=== PATIENT | male | born 1975 | race Caucasian/White ===

== ENCOUNTER 2021-04-21 16:09 | Emergency (ER) | payer OTHER, SELFPAY ==
[2021-04-21 16:30] VITALS: BP 126/84; PULSE 91; RESP 18; TEMP 36.8; O2SAT 99
--- NOTE | 2021-04-21 17:23 | ED.GENADULT ---
HPI - General Adult General Chief complaint: Upper Respiratory Infection Stated complaint: lost taste and smell and left back pain Source: patient Mode of arrival: ambulatory Limitations: no limitations History of Present Illness HPI narrative: Patient presents for evaluation of loss of sense of taste and smell. He thinks his symptoms started a few days ago, although he cannot identify the exact date of symptom onset. He states symptoms were more noticeable yesterday. No fever, chills, sore throat, nausea, vomiting, diarrhea, cough, shortness of breath, chest pain. No recent sick contacts to his knowledge. He did have COVID back in December 2020. He did not receive COVID vaccinations. No additional complaints or concerns. Related Data Home Medications Medication Instructions Recorded Confirmed meloxicam 15 mg PO DAILY 04/21/21 04/21/21 omeprazole 40 mg PO DAILY 04/21/21 04/21/21 vortioxetine [Trintellix] 20 mg PO DAILY 04/21/21 04/21/21 Allergies Allergy/AdvReac Type Severity Reaction Status Date / Time No Known Allergies Allergy Verified 04/21/21 16:52 Review of Systems Review of Systems: CONSTITUTIONAL: Denies fever, chills, or sweats. EYES: Denies visual changes, redness, or discharge. ENT: Reports impaired sense of taste and smell CARDIOVASCULAR: Denies chest pain, palpitations, or edema. RESPIRATORY: Denies cough or dyspnea. GASTROINTESTINAL: Denies abdominal pain, nausea, vomiting, or diarrhea. GENITOURINARY: Denies dysuria or hematuria. SKIN: Denies rash or itching. MUSCULOSKELETAL: Denies back pain, joint pain, or myalgia. NEUROLOGIC: Denies headache, numbness, dizziness, or weakness. PSYCHIATRIC: Denies anxiety or depression. [facility] Past Medical History Medical History (Updated 04/21/21 @ 17:30 by ALBERTO Chavez, MARVIN) Anxiety Depression GERD (gastroesophageal reflux disease) Surgical History Surgical History No pertinent past surgical history Family History Family History Mother No pertinent past medical history Social History Social History Substance use: never Living arrangements: with family Gender identity (if verbalized by the patient): Male Sexual Orientation (if Verbalized by the Patient): Straight or Heterosexual Spiritual care concerns: No Exam Narrative: GENERAL: Well-appearing, well-nourished, and in no acute distress. HEAD: Normocephalic, atraumatic. EYES: PERRLA and EOMI. ENT: Nares clear, no rhinorrhea or epistaxis. Mucous membranes moist. Oropharynx without tonsillar hypertrophy exudate or other lesions. Bilateral TMs pearly knowles nonbulging NECK: Supple. No adenopathy or masses. No carotid bruits or JVD CHEST: Clear to auscultation. No respiratory distress. No wheezes rales or rhonchi HEART: Regular rate and rhythm. No murmur heard. Normal peripheral pulses. ABDOMEN: Soft, nontender, nondistended, normal active bowel sounds. EXTREMITIES: Normal range of motion. No edema. SKIN: Warm, dry, no rash. NEURO: No focal deficits. Alert and oriented x3. PSYCH: Normal mood and affect. Course Course Emergency Course: This is a 45-year-old male that presents with loss of sense of taste and smell. COVID was negative. He has no other symptoms warranting additional work-up. We will send [facility] for PCR testing. Advised that he repeat testing in a few days. He should follow-up outpatient for further evaluation and treatment return for worsening symptoms. Patient agreed with plan of care. Level of Care: Express Care Visit Vital Signs Vital signs: Vital Signs Temperature 36.8 C 04/21/21 16:30 Pulse Rate 91 04/21/21 16:30 Respiratory Rate 18 04/21/21 16:30 Blood Pressure 126/84 04/21/21 16:30 Pulse Oximetry 99 04/21/21 16:30 Temperature 36.8 C 04/21/21 16:3
== END 2021-04-21 17:35 | disposition home or self-care (01) ==
PROVIDERS: Emergency Provider Nurse Practitioner; PCP Internal Medicine
DX: Z20.822 Contact with and (suspected) exposure to COVID-19 (principal); R43.8 Other disturbances of smell and taste; K21.9 Gastro-esophageal reflux disease without esophagitis; Z86.16 Personal history of COVID-19; F32.A Depression, unspecified
CPT/HCPCS: 87426; 99213; C9803; G0463

== ENCOUNTER 2021-08-23 14:20 | Emergency (ER) | payer OTHER, SELFPAY ==
[2021-08-23 14:35] VITALS: BP 115/71; PULSE 70; RESP 20; TEMP 36.8; O2SAT 97
--- NOTE | 2021-08-23 15:37 | ED.URI ---
HPI - URI/Sore Throat General Chief Complaint: Upper Respiratory Infection Stated Complaint: Sore Throat Time Seen by Provider: 08/23/21 15:35 Source: patient, RN notes reviewed and old records reviewed Mode of arrival: ambulatory Limitations: no limitations History of Present Illness HPI Narrative: 45 year old male who presents to [facility] care with complaints of sore throat and left ear pain for the past 3 days.Patient reports that he has not been exposed to anyone at who is ill, denies any fevers, chills or sweats. Patient states that throat is very sore especially with swallowing and his left eat has increased pain also with swallowing, has also noted some dry cough.Patient has not taken any Zyrtec or Claritin, has been taking some Ibuprofen. MD elicited complaint: sore throat and other (Ear pain) Related Data Home Medications Medication Instructions Recorded Confirmed omeprazole 40 mg PO DAILY 04/21/21 08/23/21 vortioxetine [Trintellix] 20 mg PO DAILY 04/21/21 08/23/21 Allergies Allergy/AdvReac Type Severity Reaction Status Date / Time No Known Allergies Allergy Verified 08/23/21 14:38 Review of Systems Review of Systems: CONSTITUTIONAL: Denies fever, chills, or sweats. EYES: Denies visual changes, redness, or discharge. ENT: Denies rhinorrhea, congestion,positive for sore throat,left otalgia. CARDIOVASCULAR: Denies chest pain, palpitations, or edema. RESPIRATORY:Positive for dry cough denies dyspnea. GASTROINTESTINAL: Denies abdominal pain, nausea, vomiting, or diarrhea. GENITOURINARY: Denies dysuria or hematuria. SKIN: Denies rash or itching. MUSCULOSKELETAL: Denies any acute back pain, joint pain, or myalgia. NEUROLOGIC: Denies headache, numbness, or weakness. PSYCHIATRIC: Positive for history of anxiety or depression. All systems reviewed & are unremarkable except as noted in HPI and below PMFSH Past Medical History Medical History Anxiety Depression GERD (gastroesophageal reflux disease) Surgical History Surgical History No pertinent past surgical history Family History Family History Mother No pertinent past medical history Social History Social History Substance use: never Gender identity (if verbalized by the patient): Male Sexual Orientation (if Verbalized by the Patient): Straight or Heterosexual Spiritual care concerns: No Comments At time of signature, agree with nursing past medical, surgical, social and family history. There is no relevant family history pertinent to the presenting complaint Exam Narrative: GENERAL: Well-appearing, well-nourished, and in no acute distress. HEAD: Normocephalic, atraumatic. EYES: PERRLA and EOMI. ENT: Nares slight redness with some clear rhinorrhea no epistaxis. Mucous membranes moist.TM's normal with some dull light reflex, throat red with no lesions or exudates, tonsils red and swollen NECK: Supple.no lymphadenopathy CHEST: Clear to auscultation. No respiratory distress.dry cough noted, SAO2 97% on room air HEART: Regular rate and rhythm. No murmur heard. Normal peripheral pulses. ABDOMEN: Soft, nontender, nondistended, normal active bowel sounds. EXTREMITIES: Normal range of motion. No edema. SKIN: Warm, dry, no rash. NEURO: No focal deficits. Alert and oriented x3. Course Course Level of Care: Express Care Visit Vital Signs Vital signs: Vital Signs Temperature 36.8 C 08/23/21 14:35 Pulse Rate 70 08/23/21 14:35 Respiratory Rate 20 08/23/21 14:35 Blood Pressure 115/71 08/23/21 14:35 Pulse Oximetry 97 08/23/21 14:35 Temperature 36.8 C 08/23/21 14:35 Pulse Rate 70 08/23/21 14:35 Respiratory Rate 20 08/23/21 14:35 Blood Pressure 115/71 08/23/21 14:35 Pulse Oximetry 97 08/23/21 14:35
== END 2021-08-23 16:07 | disposition home or self-care (01) ==
PROVIDERS: Emergency Provider Registered Nurse; PCP Internal Medicine
DX: J03.90 Acute tonsillitis, unspecified (principal); H92.02 Otalgia, left ear; K21.9 Gastro-esophageal reflux disease without esophagitis
CPT/HCPCS: 87081; 87880; 99213; G0463

== ENCOUNTER 2022-01-30 08:58 | Emergency (ER) | payer OTHER, SELFPAY ==
[2022-01-30 09:02] VITALS: BP 162/99; PULSE 78; RESP 16; TEMP 37.6; O2SAT 99
--- NOTE | 2022-01-30 09:07 | ED.URI ---
HPI - URI/Sore Throat General Chief Complaint: Upper Respiratory Infection Stated Complaint: cough sore throat headache fever Time Seen by Provider: 01/30/22 09:08 Source: patient, RN notes reviewed and old records reviewed Mode of arrival: ambulatory Limitations: no limitations History of Present Illness HPI Narrative: 46 year old male presents to [facility] care with complaints of sore throat, fevers up to 103F, body aches for the past 3 days with cough and headaches, and nasal drainage. Patient reports that he could hardly swallow this morning his throat hurt so bad. Patient reports that she has been taking NyQuil. Mucinex and Tylenol for her symptoms. Patient has not been COVID vaccinated and he has had COVID in past. Patient reports that cough is frequent and he feels like he is wheezing at times. MD elicited complaint: fever, cough, sore throat and rhinorrhea Onset (ago): day(s) (3) Pain scale (0-10): 2 Able to tolerate fluids by mouth: Yes Treatments prior to arrival: acetaminophen and other (Mucinex and NyQuil) Related Data Home Medications Medication Instructions Recorded Confirmed omeprazole 40 mg capsule,delayed 40 mg PO DAILY 04/21/21 01/30/22 release vortioxetine 20 mg tablet 20 mg PO DAILY 04/21/21 01/30/22 (Trintellix) meloxicam 15 mg tablet 30 mg PO DAILY 01/30/22 01/30/22 Allergies Allergy/AdvReac Type Severity Reaction Status Date / Time No Known Allergies Allergy Verified 01/30/22 09:27 Review of Systems Review of Systems: CONSTITUTIONAL: Reports malaise, chills, sweats, or fever. EYES: Denies visual changes, redness, or discharge. ENT: Reports rhinorrhea, congestion, no sinus pain, no otalgia, positive for sore throat. CARDIOVASCULAR: Denies chest pain, palpitations, or edema. RESPIRATORY: Reports cough.? Denies dyspnea. GASTROINTESTINAL: Denies abdominal pain, nausea, vomiting, diarrhea SKIN: Denies rash or itching. MUSCULOSKELETAL:Reports myalgia. NEUROLOGIC: Reports headache. All systems reviewed & are unremarkable except as noted in HPI and below PMFSH Past Medical History Medical History Anxiety Depression GERD (gastroesophageal reflux disease) Surgical History Surgical History No pertinent past surgical history Family History Family History Mother No pertinent past medical history Social History Social History Substance use: never Gender identity (if verbalized by the patient): Male Sexual Orientation (if Verbalized by the Patient): Straight or Heterosexual Spiritual care concerns: No Comments At time of signature, agree with nursing past medical, surgical, social and family history. There is no relevant family history pertinent to the presenting complaint Exam Narrative: GENERAL: Well-appearing, well-nourished, and in no acute distress. HEAD: Normocephalic EYES: PERRLA, conjunctivae clear ENT: Nares clear, turbinates edematous and erythematous, clear discharge. Mucous membranes moist. TM pearly knowles with dull light reflex bilaterally; no tragal tenderness. Oropharynx erythematous without lesions. Tonsils enlarged and with exudate, no drooling, no hoarseness, no trismus, uvula midline. NECK: Supple. lymphadenopathy CHEST: Scattered wheezing on auscultation, breath sounds equal. wheezing,no rhonchi, rales, or stridor. No respiratory distress, speaks in full sentences.Cough, SAO2 99% on room air HEART: Regular rate and rhythm. No murmur heard. SKIN: Warm, dry, no rash. NEURO: Alert and oriented x3. PSYCH: Normal mood and affect Course Course Emergency Course: Patient is aware of diagnosis, understands and agrees to treatment plan.? Anticipatory guidance given.? Patient agrees to follow-up as directed and is aware
== END 2022-01-30 09:56 | disposition home or self-care (01) ==
PROVIDERS: Emergency Provider Registered Nurse; PCP Internal Medicine
DX: J02.0 Streptococcal pharyngitis (principal); J40 Bronchitis, not specified as acute or chronic
CPT/HCPCS: 87880; 99213; G0463

== ENCOUNTER 2022-05-25 08:40 | Emergency (ER) | payer OTHER, SELFPAY ==
--- NOTE | 2022-05-25 08:45 | ED.URI ---
HPI - URI/Sore Throat General Chief Complaint: Upper Respiratory Infection Stated Complaint: Sore Throat Source: patient and RN notes reviewed History of Present Illness HPI Narrative: 46-year-old male presents to urgent care with complaints of sore throat that radiates to both ears. Patient states he is also presenting with a cough that has almost caused him to vomit. Patient states he had a fever yesterday and states this is when his symptoms started. Patient states his son tested positive for strep throat 2 weeks ago. Denies any chest pain, shortness of breath, fever vomiting. Patient has been taking cough drops with good relief. Some parts of this dictation were generated by voice recognition software and may contain typographical and/or grammatical inaccuracies. Related Data Home Medications Medication Instructions Recorded Confirmed omeprazole 40 mg capsule,delayed 40 mg PO DAILY 04/21/21 05/25/22 release vortioxetine 20 mg tablet 20 mg PO DAILY 04/21/21 05/25/22 (Trintellix) meloxicam 15 mg tablet 30 mg PO DAILY 01/30/22 05/25/22 Allergies Allergy/AdvReac Type Severity Reaction Status Date / Time No Known Allergies Allergy Verified 05/25/22 08:43 Review of Systems Review of Systems: CONSTITUTIONAL: Denies fever, chills, or sweats. EYES: Denies visual changes, redness, or discharge. ENT: Reports sore throat that radiates to both ears. CARDIOVASCULAR: Denies chest pain, palpitations, or edema. RESPIRATORY: Denies cough or dyspnea. GASTROINTESTINAL: Denies abdominal pain, nausea, vomiting, or diarrhea. GENITOURINARY: Denies dysuria or hematuria. SKIN: Denies rash or itching. MUSCULOSKELETAL: Denies back pain, joint pain, or myalgia. NEUROLOGIC: Denies headache, numbness, or weakness. [facility] Past Medical History Medical History Anxiety Depression GERD (gastroesophageal reflux disease) Surgical History Surgical History No pertinent past surgical history Family History Family History Mother No pertinent past medical history Social History Social History Substance use: never Living arrangements: with family Gender identity (if verbalized by the patient): Male Sexual Orientation (if Verbalized by the Patient): Straight or Heterosexual Spiritual care concerns: No Comments At the time of my signature, I reviewed and agree with the nursing past medical, surgical, social, and family history. There is no relevant family history pertinent to the patient complaint. Exam Narrative: GENERAL: This is a well-nourished, well-developed patient, in no apparent distress. HEAD: normocephalic, atraumatic. EYES: PERRL. Sclera clear/white. Vision is grossly intact. EARS: External ears normal, auditory canals clear and without drainage, TMs normal without perforation. Hearing grossly intact. NOSE: External nose normal with no obvious nasal discharge, nares without redness, no rhinorrhea. THROAT: Mucous membranes moist, posterior pharynx erythremic, uvula slightly swollen, no exudate noted. NECK: Neck supple, non-tender without lymphadenopathy, masses or thyromegaly. CARDIOVASCULAR: Regular rate and rhythm without murmurs, gallops, or rubs. RESPIRATORY: Clear to auscultation. Breath sounds equal bilaterally. No wheezes, rales, or rhonchi. GASTROINTESTINAL: Abdomen soft, non-tender, nondistended. Bowel sounds are active. No hepato-splenomegaly, or palpable masses. No guarding. SKIN: warm, intact with no suspicious lesions or rash, good texture and turgor. NEURO: awake, alert, and oriented to person, place and time. There were no obvious focal neurologic abnormalities. Course Course Level of Care: Express Care Visit Vital Signs Vital signs: Vital Signs Temperature 98.3 F 02/2
[2022-05-25 08:46] VITALS: BP 130/82; PULSE 61; RESP 20; TEMP 36.8; O2SAT 98
== END 2022-05-25 09:25 | disposition home or self-care (01) ==
PROVIDERS: Emergency Provider Nurse Practitioner Family; PCP Internal Medicine
DX: J02.9 Acute pharyngitis, unspecified (principal); Z79.1 Long term (current) use of non-steroidal anti-inflammatories (NSAID)
CPT/HCPCS: 87081; 87880; 99213; G0463

== ENCOUNTER 2022-05-26 16:08 | Emergency (ER) | payer OTHER, SELFPAY ==
[2022-05-26 16:12] VITALS: BP 130/82; PULSE 66; RESP 20; TEMP 36.4; O2SAT 99
--- NOTE | 2022-05-26 17:04 | ED.EYEPROB ---
HPI - Eye Problem General Chief complaint: Eye Problems Stated complaint: Eye Problem Time Seen by Provider: 05/26/22 16:50 Source: patient, RN notes reviewed and old records reviewed Mode of arrival: ambulatory Limitations: no limitations History of Present Illness HPI Narrative: 46 year old male presents to [facility] care with complaints of left eye crusting, redness and itching which started this morning.Patient was seen in the clinic 2 days ago for respiratory complaints and sore throat with negative strep at that time. Patient denies any sore throat at this time, does continue to have some sinus congestion and drainage and mild cough but reports symptoms have improved. MD chief complaint: eye redness and other (crusting and itching) Onset (ago): hour(s) (this morning) Location: left eye Related Data Home Medications Medication Instructions Recorded Confirmed omeprazole 40 mg capsule,delayed 40 mg PO DAILY 04/21/21 05/25/22 release vortioxetine 20 mg tablet 20 mg PO DAILY 04/21/21 05/25/22 (Trintellix) meloxicam 15 mg tablet 30 mg PO DAILY 01/30/22 05/25/22 Allergies Allergy/AdvReac Type Severity Reaction Status Date / Time No Known Allergies Allergy Verified 05/25/22 08:43 Review of Systems Review of Systems: CONSTITUTIONAL: Denies fever, chills, or sweats. EYES: Denies visual changes. Reports redness,, irritation, discharge to his left eye ENT: Reports some rhinorrhea, congestion,no sore throat, or otalgia. CARDIOVASCULAR: Denies chest pain, palpitations, or edema. RESPIRATORY: Reports mild cough denies dyspnea. SKIN: Denies rash or itching. NEUROLOGIC: Denies headache All systems reviewed & are unremarkable except as noted in HPI and below PMFSH Past Medical History Medical History (Updated 05/28/22 @ 06:44 by Veronica Moreno NP) Anxiety Asthma as child Depression GERD (gastroesophageal reflux disease) Surgical History Surgical History (Updated 05/28/22 @ 06:40 by Veronica Moreno NP) Hx of spinal surgery Family History Family History Mother No pertinent past medical history Social History Social History Substance use: never Living arrangements: with family Gender identity (if verbalized by the patient): Male Sexual Orientation (if Verbalized by the Patient): Straight or Heterosexual Spiritual care concerns: No Comments At time of signature, agree with nursing past medical, surgical, social and family history. There is no relevant family history pertinent to the presenting complaint Exam Narrative: GENERAL: Well-appearing, well-nourished, and in no acute distress. HEAD: Normocephalic, atraumatic. EYES: PERRLA and EOMI. Upper and lower eyelids unremarkable. No periorbital cellulitis noted. Sclera and conjunctivae injected of left eye with itching ENT: Nares clear, clear rhinorrhea no epistaxis. Mucous membranes moist.TM's normal with good light reflex, throat pink with no lesions or swelling NECK: Supple.no lymphadenopathy CHEST: Clear to auscultation. No respiratory distress. HEART: Regular rate and rhythm. No murmur heard. Normal peripheral pulses. SKIN: Warm, dry, no rash. NEURO: No focal deficits. Alert and oriented x3. Course Course Emergency Course: Patient is aware of diagnosis, understands and agrees to treatment plan. Anticipatory guidance given. Patient agrees to follow-up as directed and is aware of reasons to seek care at the emergency department. Portions of this record may have been created with voice recognition software Level of Care: Express Care Visit Vital Signs Vital signs: Vital Signs Temperature 36.4 C L 05/26/22 16:12 Pulse Rate 66 05/26/22 16:12 Respiratory Rate 20 05/26/22 16:12 Blood Pressure 130/82 05/26/22 16:12 Pulse Oximetry 99 05/26/22 16:12 Oxygen Delivery Room Air 05/26/22 16:12 Temperature
== END 2022-05-26 17:16 | disposition home or self-care (01) ==
PROVIDERS: Emergency Provider Registered Nurse; PCP Internal Medicine
DX: H10.9 Unspecified conjunctivitis (principal); K21.9 Gastro-esophageal reflux disease without esophagitis
CPT/HCPCS: 99213; G0463

== ENCOUNTER 2023-07-25 16:27 | Emergency (ER) | payer OTHER, SELFPAY ==
[2023-07-25 16:32] VITALS: BP 148/87; PULSE 67; RESP 20; TEMP 36.6; O2SAT 100
--- NOTE | 2023-07-25 17:03 | ED.GENADULT ---
HPI - General Adult General Chief complaint: Eye Problems Stated complaint: Right Eye Problem Source: patient Mode of arrival: ambulatory Limitations: no limitations History of Present Illness HPI narrative: Patient presents for evaluation of swelling and redness to the right lower eyelid. Symptom onset 2200 last night. Reports some tearing. Denies visual disturbance. He does not were glasses or contacts. He has not tried any therapies to assist with the symptoms. Related Data Home Medications Medication Instructions Recorded Confirmed omeprazole 40 mg capsule,delayed 40 mg PO DAILY 04/21/21 07/25/23 release vortioxetine 20 mg tablet 20 mg PO DAILY 04/21/21 07/25/23 (Trintellix) clonazepam 0.5 mg tablet 0.5 mg PO DAILY PRN Anxiety 07/25/23 07/25/23 trazodone 100 mg tablet See Rx Instructions .Route .COMPLEX 07/25/23 07/25/23 Allergies Allergy/AdvReac Type Severity Reaction Status Date / Time No Known Allergies Allergy Verified 07/25/23 16:56 Review of Systems Review of Systems: CONSTITUTIONAL: Denies fever, chills, or sweats. EYES: Denies visual changes or redness to the eye. Reports tearing from the right eye ENT: Denies rhinorrhea, congestion, sore throat, or otalgia. CARDIOVASCULAR: Denies chest pain, palpitations, or edema. RESPIRATORY: Denies cough or dyspnea. GASTROINTESTINAL: Denies abdominal pain, nausea, vomiting, or diarrhea. GENITOURINARY: Denies dysuria or hematuria. SKIN: Reports swelling and redness to the right lower eyelid. MUSCULOSKELETAL: Denies back pain, joint pain, or myalgia. NEUROLOGIC: Denies headache, numbness, dizziness, or weakness. PSYCHIATRIC: Denies anxiety or depression. [facility] Past Medical History Medical History Anxiety Asthma as child Depression GERD (gastroesophageal reflux disease) Surgical History Surgical History Hx of spinal surgery Family History Family History Mother No pertinent past medical history Social History Social History Substance use: never Living arrangements: with family Gender identity (if verbalized by the patient): Male Sexual Orientation (if Verbalized by the Patient): Straight or Heterosexual Spiritual care concerns: No Exam Narrative: GENERAL: Well-appearing, well-nourished, and in no acute distress. HEAD: Normocephalic, atraumatic. EYES: PERRLA and EOMI. ENT: Nares clear, no rhinorrhea or epistaxis. Mucous membranes moist. Oropharynx without tonsillar hypertrophy exudate or other lesions. Bilateral TMs pearly knowles nonbulging NECK: Supple. No adenopathy or masses. No carotid bruits or JVD CHEST: Clear to auscultation. No respiratory distress. No wheezes rales or rhonchi HEART: Regular rate and rhythm. No murmur heard. Normal peripheral pulses. ABDOMEN: Soft, nontender, nondistended, normal active bowel sounds. EXTREMITIES: Normal range of motion. No edema. SKIN: There is erythema and mild swelling noted surrounding a hair follicle to the right lower eyelid. Warm, dry, no rash. NEURO: No focal deficits. Alert and oriented x3. PSYCH: Normal mood and affect. Course Course Emergency Course: This is a 47-year-old male who presented for evaluation of swelling and redness to the right lower eyelid. He has evidence of a hordeolum. Recommended application of warm compresses. Will also discharge with a prescription for erythromycin ointment. Follow up with primary provider. Go to the emergency department for worsening symptoms. Patient in agreement with plan care Level of Care: Express Care Visit Vital Signs Vital signs: Vital Signs Temperature 36.6 C 07/25/23 16:32 Pulse Rate 67 07/25/23 16:32 Respiratory Rate 20 07/25/23 16:32 Blood Pressure 148/87 H 07/25/23 16:32 Pulse Oximetry 100 07/25/23 16:32 Oxygen Delivery Room Air 07/25/23 16:32 Temperature 36.6 C 07/25/23 16:32 Pulse Rate 67 07/25/23 16:32 Respiratory Rate 20 07/25/23 16:32 Blood Pressure 148/87 H 07/25/23 16:32 Pulse Oximetry 100 07/25/23 16:32 Oxygen Delivery Room Air 07/25/23 16:32 Medical Decision Making Vital Signs Vital Signs: Vital Signs Temperature 36.6 C 07/25/23 16:32 Pulse Rate 67 07/25/23 16:32 Respiratory Rate 20 07/25/23 16:32 Blood Pressure 148/87 H 07/25/23 16:32 Pulse Oximetry 100 07/25/23 16:32 Oxygen Delivery Room Air 07/25/23 16:32 Temperature 36.6 C 07/25/23 16:32 Pulse Rate 67 07/25/23 16:32 Respiratory Rate 20 07/25/23 16:32 Blood Pressure 148/87 H 07/25/23 16:32 Pulse Oximetry 100 07/25/23 16:32 Oxygen Delivery Room Air 07/25/23 16:32 Discharge Plan Discharge Clinical Impression: Hordeolum Patient Disposition: Home, Self-Care Condition: Stable Instructions: Antibiotic Abiel Kovacs (ED) Patient Language: Serbian Prescriptions: New erythromycin 5 mg/gram (0.5 %) ointment 1 applic RIGHT EYE 6XD Qty: 3.5 0RF No Action clonazepam 0.5 mg tablet 0.5 mg PO DAILY PRN (Reason: Anxiety) trazodone 100 mg tablet See Rx Instructions .ROUTE .COMPLEX Rx Instructions: as prescribed omeprazole 40 mg capsule,delayed release(DR/EC) 40 mg PO DAILY Trintellix 20 mg tablet 20 mg PO DAILY Follow-up/Referrals: Janelle,Eldon Cartwright MD [Primary Care Provider] - Time of Disposition: 16:48
== END 2023-07-25 16:50 | disposition home or self-care (01) ==
PROVIDERS: Emergency Provider Nurse Practitioner; PCP Internal Medicine
DX: H00.012 Hordeolum externum right lower eyelid (principal); K21.9 Gastro-esophageal reflux disease without esophagitis; F41.9 Anxiety disorder, unspecified; F32.A Depression, unspecified
CPT/HCPCS: 99213; G0463

== ENCOUNTER 2024-05-05 08:02 | Emergency (ER) | payer OTHER, SELFPAY ==
[2024-05-05 08:09] VITALS: BP 124/78; PULSE 69; RESP 16; TEMP 37; O2SAT 98
--- OUTSIDE RECORDS SUMMARY | 2024-05-05 08:11 | XMS_ITS | Referral Summary ---
Author Organization [address] lt Address [address] [place] [address] Care Team Providers Care Sanitation Worker Name Role Phone Eldon Luis MD Primary Care Provider + Allergies No known active allergies Medications albuterol HFA (PROVENTIL HFA,VENTOLIN HFA,PROAIR HFA) 90 mcg/actuation inhaler Inhale 2 puffs every 4 (four) hours as needed 05/11/2019 Active clonazePAM (KlonoPIN) 0.5 mg tablet 10/11/2020 Active meloxicam (MOBIC) 15 mg tablet 10/05/2020 Active omeprazole (PriLOSEC) 40 mg capsule 10/05/2020 Active tiZANidine (ZANAFLEX) 2 mg tablet 07/31/2020 Active Trintellix 20 mg tablet 10/05/2020 Active Active Problems Problem Noted Date Diagnosed Date Lumbago 09/14/2011 Herniated lumbar intervertebral disc 12/22/2010 Immunizations Name Administration Dates Next Due Influenza, Quadrivalent, Spl it, Preservative Free, Intramuscular 01/18/2020,01/27/2018 Influenza, Trivalent, IM (MDV) 02/13/2009 Pneumococcal Polysaccharide PPV23 01/18/2020 Tdap 09/20/2015,02/13/2009 Social History Tobacco Use Types Packs/Day Years Used Date Smoking Tobacco: Never Smokeless Tobacco: Never Alcohol Use Standard Drinks/Week Comments Yes 0 (1 standard drink = 0.6 oz pur e alcohol) Sex and Gender Information Value Date Recorded Sex Assigned at Not on file 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 Gender Identity Not on file Sexual Orientation Not on file Last Filed Vital Signs Vital Sign Reading Time Taken Comments Blood Pressure 125/90 12/11/2020 9:59 AM CDT Pulse 66 12/11/2020 8:54 AM CDT Temperature 36.6 ??C (97.8 ??F) 12/11/2020 8:54 AM CD T Respiratory Rate 15 12/11/2020 8:54 AM CDT Oxygen Saturation 98% 12/11/2020 8:54 AM CDT Inhaled Oxygen Concentration - - Weight 108 kg (238 lb) 12/11/2020 8:54 AM CDT Height 167.6 cm (5' 6 ) 12/11/2020 8:54 AM CDT Body Mass Index 38.41 12/11/2020 8:54 AM CDT Plan of Treatment Not on file Insurance [employer] Care Teams Sanitation Worker Relationship Specialty Start Date End Date Eldon Luis MD [address] [place] [phone] PCP - General 12/22/18
--- OUTSIDE RECORDS SUMMARY | 2024-05-05 08:11 | XMS_ITS | Clinical Summary ---
Author Organization [facility] Address [address] [place] [address] Phone Care Team Providers Care Database Analyst Name Role Phone Eldon Luis MD Primary Care Provider [phone] Allergies No known active allergies Medications cyclobenzaprine (FLEXERIL) 10 MG Tablet Take 1 Tablet by mouth 3 times daily as needed for Muscle spasms. 30 Tablet 07/02/2022 Active Social History Tobacco Use Types Packs/Day Years Used Date Smoking Tobacco: Never Smokeless Tobacco: Never Alcohol Use Standard Drinks/Week Comments Never 0 (1 standard drink = 0.6 oz pur e alcohol) Sex and Gender Information Value Date Recorded Sex Assigned at Not on file Legal Sex Male 12:40 PM CDT Gender Identity Not on file Sexual Orientation Not on file Last Filed Vital Signs Vital Sign Reading Time Taken Comments Blood Pressure 143/76 07/02/2022 11:00 PM CDT Pulse 65 07/02/2022 11:00 PM CDT Temperature 37.1 ??C (98.7 ??F) 07/02/2022 10:28 PM C DT Respiratory Rate 18 07/02/2022 10:31 PM CDT Oxygen Saturation 98% 07/02/2022 11:00 PM CDT Inhaled Oxygen Concentration - - Weight 106.6 kg (235 lb) 07/02/2022 10:28 PM CDT Height 167.6 cm (5' 6 ) 07/02/2022 10:28 PM CDT Body Mass Index 37.93 07/02/2022 10:28 PM CDT Plan of Treatment Not on file Insurance Care Teams Database Analyst Relationship Specialty Start Date End Date Eldon Luis MD [address] [place] [phone] PCP - General 08/26/21
--- OUTSIDE RECORDS SUMMARY | 2024-05-05 08:11 | XMS_ITS | Clinical Summary ---
Author Organization [facility] Address [address] [place] [address]. 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 Gender Identity Not on file Sexual Orientation Not on file Last Filed Vital Signs Vital Sign Reading Time Taken Comments Blood Pressure 132/80 07/03/2022 4:30 PM CDT Pulse 73 07/03/2022 4:30 PM CDT Temperature 36.4 ??C (97.5 ??F) 07/03/2022 4:32 PM CD T Respiratory Rate 18 07/03/2022 4:30 PM CDT Oxygen Saturation 96% 07/03/2022 4:30 PM CDT Inhaled Oxygen Concentration - - Weight 106.6 kg (235 lb) 07/03/2022 4:30 PM CDT Height 167.6 cm (5' 6 ) 07/03/2022 4:30 PM CDT Body Mass Index 37.93 07/03/2022 4:30 PM CDT Plan of Treatment Health Maintenance Due Date Last Done Comments Colorectal Cancer Screening Colonoscopy (10 Years) 1977 Annual Physical 1980 Hepatitis C 11/23/1995 Hepatitis B Vaccines (1 of 3 - 19+ 3-dose series) 1996 COVID-19 Vaccine (2023-2 5 season) 2023 Influenza Adult (#1) 2024 01/18/2020, 01/27/2018, 02/13/2009 DTaP, Tdap and Td Vaccines ( 3 - Td or Tdap) 09/19/2025 09/20/2015, 02/13/2009 Pneumococcal Vaccine: Pediatrics (0 to 5 Years) and At-Risk Patients (6 to 64 Years) Aged Out 01/18/2020 No longer eligible b ased on patient's age to complete this topic Meningococcal B Vaccine Aged Out No l onger eligible based on patient's age to complete this topic Meningococcal Vaccine Aged Out No ricki elkin eligible based on patient's age to complete this topic RSV Immunizations Under 20 Months Aged Out No longer eligible b ased on patient's age to complete this topic Insurance [employer] Member Subscriber Plan / Payer (Ef fective 2022-Present) Name:anupam duarte Relation to Subscriber:Self Name:Anupam Duarte Payer ID:Not on file Group ID:Not on file Type:Not on file Address: [address] [id number] Care Teams Electrician Shop Relationship Specialty Start Date End Date None, Provider, PCP - General 04/04/21
--- OUTSIDE RECORDS SUMMARY | 2024-05-05 08:11 | XMS_ITS | Encounter Summary ---
Author Organization [facility] Address [address] [place] [address] Care Team Providers Care Film Replacement Orderer Name Role Phone Eldno Luis MD Primary Care Provider [phone] Encounter Details Date Type Department Care Team (Late st Contact Info) Description 11/11/2014 Nurse Triage Report [facility]STRACTION Marcella Kathleen, RN Social History Tobacco Use Types Packs/Day Years Used Date Smoking Tobacco: Never Smokeless Tobacco: Never Alcohol Use Standard Drinks/Week Comments Yes 0.8 (1 standard drink = 0.6 oz p ure alcohol) rarely Sex and Gender Information Value Date Recorded Sex Assigned at Not on file Legal Sex Male 3:12 AM REMOTE CODERS Gender Identity Not on file Sexual Orientation Not on file documented as of this encounter Progress Notes * Marcella Kathleen, RN - 11/11/2014 7:13 AM CDT CHART DOCUMENTATION ONLY Call Type: Triage Call Presenting Problem: Nilda Duarte, He is having left sided cheek and facial pain. report feedback to Dr. uLis Associated Symptoms: pain in left check, radiates into his ear, over to left eye and his check. Unable to sleep and is pacing due to pain Onset: 4 days ago Location: facial Pain Assessment: 1 - 10 with 10 being the most severe pain 8 Treatment so far for current presenting problem: taking meds as directed History (Clinical Problems): dx with [place] History (Oncology/Hematology Diagnosis): Depression Medications: all meds verified in [facility] with callers list Medication reactions: NKDA <<<<<<<< TRIAGE NOTE >>>>>>>> <<<<<<<< TRIAGE/OUTCOME >>>>>>>> Guideline Title: Face Pain or Swelling Recommended Disposition: See Provider within 4 hours Original Inclination: Call Provider/See in 24 Intended Action: See care in [facility] Physician Contacted: No Localized tenderness over one or both temples ? YES documented in this encounter Plan of Treatment Upcoming Encounters Date Type Department Care Team (Late st Contact Info) Description 05/24/2024 12:00 PM REMOTE CODERS Office Visit [facility] [place] [address] Eldon Luis MD [address] [place] [phone] documented as of this encounter Visit Diagnoses Not on filedocumented in this encounter Care Teams Film Replacement Orderer Relationship Specialty Start Date End Date Eldon Luis MD PCP - General Internal Medicine 08/01/13 documented as of this encounter
--- OUTSIDE RECORDS SUMMARY | 2024-05-05 08:11 | XMS_ITS | Clinical Summary ---
Author Organization [address] lt Address [address] [place] [address] Care Team Providers Care Manager Diabetes Name Role Phone Eldon Luis MD Primary [...] 02/13/2009 Pneumococcal Polysaccharide PPV23 01/18/2020 Tdap 09/20/2015,02/13/2009 Surgical History Surgery Date Site/Laterality Comments VASECTOMY Vasectomy OTHER SURGICAL HISTORY 2011 L lumbar radiculopathy: lumbar l4-l5 surgery/ [facility] Medical History Medical History Date Comments Hx Other Medical L lumbar radicu lopathy Personal history of other me ntal and behavioral disorders History of depression - (Add ed by TW Conv) Family History Medical History Relation Name Comments Alcohol abuse Other Family history of Alcoholism; Relation Name Status Comments Other Social History Tobacco Use Types Packs/Day Years Used Date Smoking Tobacco: Never Smokeless Tobacco: Never Alcohol Use Standard Drinks/Week Comments Yes 0 (1 standard drink = 0.6 oz pur e alcohol) Sex and Gender Information Value Date Recorded Sex Assigned at Not on file 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
--- OUTSIDE RECORDS SUMMARY | 2024-05-05 08:11 | XMS_ITS | Clinical Summary ---
Author Organization [facility] Address [address] [place] [address] Care Team Providers Care Account Supervisor Name Role Phone Eldon Luis MD Primary Care Provider Allergies No known active allergies Medications clonazePAM (KlonoPIN) 0.5 mg TabletIndication s:Situational mixed anxiety and depressive disorder Take 1 Tablet (0.5 mg) by mouth 3 times daily as needed for Anxiety. 90 Tablet 10/14/19 22 Active vortioxetine (Trintellix) 20 mg tablet Take 1 Tablet (20 mg) by mouth daily. 90 Tablet 01/22/20 22 Active meloxicam (MOBIC) 15 mg tablet Take 1 Tablet (15 mg) by mouth daily. 90 Tablet 1 04/16/19 23 Active albuterol sulfate HFA 90 mcg/actuation aerosol inhalerIndicatio ns:Exacerbation of asthma, unspecified asthma severity, unspecified whether persistent Take 2 Puffs by inhalation every 4 hours as needed for Shortness of Breath. 8.5 Gram 1 06/11/19 23 Active TESTOSTERONE ENANTHATE IM Inject by intramuscular injection. Active omeprazole (PriLOSEC) 40 mg Capsule, Delayed Release(E.C.)Ind ications:Gastroe sophageal reflux disease, unspecified whether esophagitis present Take 1 Capsule (40 mg) by mouth daily. 100 Capsule 3 08/24/19 24 Active HYDROcodone-acet aminophen (NORCO) 5-325 mg tabletIndication s:Other acute appendicitis,Acu te appendicitis with localized peritonitis, without perforation, abscess, or gangrene Take 1 Tablet by mouth every 4 hours as needed for Pain, Severe. Max Daily Amount: 6 Tablets 15 Tablet 5 10:39 AM DOOR TO DOOR SALESPERSON 04/23/19 Active ibuprofen (MOTRIN) 600 mg tablet Take 1 Tablet (600 mg) by mouth every 6 hours as needed for Pain, Mild. 04/23/19 25 Active acetaminophen (TYLENOL) 325 mg tablet Take 2 Tablets (650 mg) by mouth every 6 hours as needed for Pain. If taking with percocet or norco be aware that these medications also contain tylenol (325mg per tablet). Do not take more than 3000mg of tylenol total in a 24 hour period. 04/23/19 25 025 polyethylene glycol 3350 (MIRALAX) 17 gram/dose Powder Take 1 Scoop (17 Grams) by mouth daily for 7 days. Dissolve in 8 ounces of fluid and drink entire liquid 04/23/19 025 Active Problems Patient Care Coordination No te Formatting of this note migh t be different from the original. Prev 05/23/20 Problem Noted Date Diagnosed Date Hypercholesterolemia 08/24/2023 Vitamin D deficiency 08/24/2023 Family history of early CAD 06/19/2019 Situational mixed anxiety and depressive disorde r 08/09/2013 Asthma 08/09/2013 Resolved Problems Problem Noted Date Diagnosed Date Resolved Date Chest discomfort 06/19/2019 10/31/2019 Marital problems 11/01/2018 05/08/2019 Recurrent major depressive d isorder, in partial remission 07/06/2018 10/31/2019 Moderate episode of recurren t major depressive disorder 04/21/2018 10/31/2019 Atypical facial pain 02/26/2015 019 Encounters Date Type Department Care Team Description 04/27/2024 External Device Data [facility] Provider, Abstract 04/26/2024 External Device Data [facility] Provider, Abstract 04/25/2024 External Device Data [facility] Provider, Abstract 04/25/2024 External Device Data [facility] Provider, Abstract 04/23/2024 8:00 AM DOOR TO DOOR SALESPERSON - 04/23/2024 9:23 AM [facility] [[email or web address]] Surgery [facility] Operating Room [address] [place] [address] Vale Barrow MD APPENDECTOMY LAPAROSCOPIC 04/23/2024 7:57 AM DOOR TO DOOR SALESPERSON Anesthesia Event [facility] Operating Room [address] [place] [address] Eva Villatoro MD 04/23/2024 4:31 AM DOOR TO DOOR SALESPERSON - 04/23/2024 12:09 PM DOOR TO DOOR SALESPERSON Emergency [facility] [address] [place] [address] Jewell Espinoza MD Schmidt, Lauren, MD Bach, Vale Alejo MD Discharge Disposition: Home or Self Care 04/18/2024 External Device Data [facility] Provider, Abstract from Last 3 Months Immunizations Immunization Administration Dates Next Due (ADACEL/BOOSTRIX)(10 YR UP) TDAP VACCINE, 0.5ML, IM 09/20/2015,02/13/2009 (PNEUMOVAX 23)(50 YRS UP) PN EUMOCOCCAL POLYSACCHARIDE (PPV23) 0.5 ML, IM 01/18/2020,01/18/2020(Deferred: Other (See comments)) INFLUENZA VACCINE QUADRIVALE NT 6 MOS UP PF IM 01/18/2020,01/27/2018 Influenza Vaccine Tri Split 4+ Im 02/13/2009 Family History Medical History Relation Name Comments Depression Brother 3 Anxiety Brother 4 Anxiety Father Depression Father Heart Surgery Father stent Other Father uclers Depression Mother Other Mother obesity Colon Cancer Neg Hx Relation Name Status Comments Brother 1 Alive Brother 2 Alive Brother 3 Brother 4 Father (Age 57) Mother Alive Social History Tobacco Use Types Packs/Day Years Used Date Smoking Tobacco: Never Passive Smoke Exposure: Never Smokeless Tobacco: Never Tobacco Cessation:Counseling Given: No Alcohol Use Standard Drinks/Week Comments Yes 0.8 (1 standard drink = 0.6 oz p ure alcohol) rarely Feeling Safe Answer Date Recorded Are you in a relationship wi th someone who hurts you emotionally and/or physically? No 04/23/2024 Sex and Gender Information Value Date Recorded Sex Assigned at Not on file Legal Sex Male 3:12 AM DOOR TO DOOR SALESPERSON Gender Identity Not on file Sexual Orientation Not on file Last Filed Vital Signs Vital Sign Reading Time Taken Comments Blood Pressure 119/79 04/23/2024 11:31 AM DOOR TO DOOR SALESPERSON Pulse 63 04/23/2024 11:31 AM DOOR TO DOOR SALESPERSON Temperature 36.1 ??C (96.9 ??F) 04/23/2024 11:[address] Respiratory Rate 16 04/23/2024 11:31 AM DOOR TO DOOR SALESPERSON Oxygen Saturation 94% 04/23/2024 10:11 AM DOOR TO DOOR SALESPERSON Inhaled Oxygen Concentration - - Weight 104.3 kg (230 lb) 04/23/2024 4:00 AM DOOR TO DOOR SALESPERSON Height 167.6 cm (5' 6 ) 04/23/2024 4:00 AM DOOR TO DOOR SALESPERSON Body Mass Index 37.12 04/23/2024 4:00 AM DOOR TO DOOR SALESPERSON Plan of Treatment Upcoming Encounters Date Type Department Care Team (Late st Contact Info) Description 05/24/2024 12:00 PM DOOR TO DOOR SALESPERSON Office Visit [facility] Primary Care [address] [place] [address] Eldon Luis MD [address] [facility] [address] [place] [address] Health Maintenance Due Date Last Done Comments Pre-Diabetes and Diabetes Screening 1975 HEPATITIS B VACCINES (1 of 3 - 19+ 3-dose series) 1996 FIT-DNA Q 3 years 2022 FIT/FOBT Q 1 year 2022 Flex Sig/CT Colonography Q 5 years 2022 INFLUENZA VACCINE (#1) 2023 , 01/27/2018, 02/13/2009 Preventative Visit- Commercial 04/05/2024 08/24/2023, 05/23/2020, 04/26/2019, Additional history exists DTAP/TDAP/TD VACCINES (3 - Td or Tdap) 09/19/2025 09/20/2015, 02/13/2009 COLORECTAL SCREENING 01/30/2034 01/31/2024, 01/31/20 24 Colorectal Cancer Screening 01/30/2034 HPV VACCINES Aged Out No longer eligi ble based on patient's age to complete this topic Procedures Procedure Name Priority Date/Time Associated Diagnosis Comments PATHOLOGY Pathology 04/23/2024 8:44 AM DOOR TO DOOR SALESPERSON TX ANES INSERT ENDOTRACHEAL AIRWAY Routine 04/23/2024 8:04 AM DOOR TO DOOR SALESPERSON APPENDECTOMY LAPAROSCOPIC 04/23/2024 8:00 AM DOOR TO DOOR SALESPERSON VERIFICATION BLOOD GROUP Stat 04/23/2024 6:40 AM DOOR TO DOOR SALESPERSON Encounter for blood typing TYPE AND SCREEN Stat 04/23/2024 5:42 AM DOOR TO DOOR SALESPERSON URINALYSIS W/REFLEX MICROSCOPIC Stat 04/23/2024 5:08 AM DOOR TO DOOR SALESPERSON CT ABDOMEN PELVIS W CONTRAST Stat 04/23/2024 5:06 AM DOOR TO DOOR SALESPERSON POC CREATININE Stat 04/23/2024 4:50 AM DOOR TO DOOR SALESPERSON COMPREHENSIVE METABOLIC PANEL Stat 04/23/2024 4:45 AM DOOR TO DOOR SALESPERSON CBC WITH DIFFERENTIAL Stat 04/23/2024 4:45 AM DOOR TO DOOR SALESPERSON COLONOSCOPY REPORT 01/31/2024 10 :22 AM CDT from Last 3 Months or Most Recently Relevant to Health Maintenance Results * PATHOLOGY (04/23/2024 8:44 AM DOOR TO DOOR SALESPERSON) CASE REPORT Surgical Pathology Report ? Case: [id number] ? Authorizing Provider: ??Vale Barrow MD ? Collected: ? 04/23/2024 08:44 AM ? Ordering Location: ? [facility] ?Received: ?04/24/2024 07:18 AM ? Operating Room ? Pathologist: ? Linda Montenegro MD ? Specimen: ?Appendix, APPENDIX ? 11:47 AM [facility] [employer] [facility] FINAL DIAGNOSIS Appendix, laparoscopic appendectomy: - Acute appendicitis and periappendicitis. 11:47 AM [facility] [employer] [facility] at 1147 DOOR TO DOOR SALESPERSON GROSS DESCRIPTION Received in a single container labeled Anupam Duarte, appendix is a 7.5 cm long by 1.2 cm diameter vermiform appendix which has 6 x 2.5 x 1.5 cm of attached mesoappendix. The serosal surface is purple-knowles and dusky. No transmural defects or exudate are identified. The proximal and mesoappendiceal margins are stapled. The lumen has a diameter 0.8 cm, and the wall ranges in thickness from less than 0.1 to 0.2 cm. The lumen contains a semisolid fecal material. Neither a mass nor a fecalith are identified. Director Of Medical Services sections are submitted in cassettes as follows: A1-proximal margin and distal tip; A2-central cross-sections. KA 11:47 AM [facility] [employer] [facility] MICROSCOPIC DESCRIPTION The slides are labeled [id number] and Anupam Duarte. Sections show a dilated appendix with transmural and serosal acute inflammation. There is no evidence of granulomas or dysplasia. 11:47 AM [facility] OPERATIVE PROCEDURE 1: Appendectomy laparoscopic 5 11:47 AM [facility] COMMENT Special stain, immunohistochemical, and/or in situ hybridization results are interpreted with controls that demonstrate appropriate staining reactions. Note on use of immunohistochemistry reagents and in situ hybridization probes: These tests were developed and their performance characteristics determined by [facility] Department of Laboratory Medicine. It has not been cleared or approved by the U.S. Food and Drug Administration. The FDA has determined that such clearance or approval is not necessary. The test is used for clinical purposes. It should not be regarded as investigational or for research. This laboratory is certified to perform high complexity testing. Frozen section/operating room consultation, gross examination and dissection, and case sign out may have been performed in part or completely in the following laboratories: [facility], [place] #[id number] [address] [place] [address] [facility], [place] #[id number] [address] [place] [address] [facility], [place] #[id number] [address] [place] [address] This report was created with the Myrl voice-activated dictation system. Inherent to this system is the possibility of syntax, grammar, punctuation and other errors that could impact the interpretation of the report. If there are interpretative questions about aspects of this report, please contact the performing pathologist. 5 11:47 AM [facility] Tissue APPENDIX STRUCTURE / Unknown Collection / Unknown 04/23/2024 8:44 AM DOOR TO DOOR SALESPERSON 04/24/2024 7:18 AM DOOR TO DOOR SALESPERSON us Vale Barrow MD PATHOLOGY/CYTOLOGY ORDERABL ES Final Result [id number] [address] [place] [address] * [place] ANES INSERT ENDOTRACHEAL AIRWAY (04/23/2024 8:04 AM DOOR TO DOOR SALESPERSON) Narrative Duglas Skinner AA - 04/23/2024 8:04 AM DOOR TO DOOR SALESPERSON Duglas Skinner AA ? 04/23/2024 ??8:17 AM Airway Date/Time: 04/23/2024 8:04 AM Location: OR Plan: routine intubation Patient Identity Confirmed by: ??Verbally with patient and armband Airway: not difficult Staffing Performed: SALESPERSON FLYING SQUAD/CAA Authorized by: Eva Villatoro MD ?? Performed by: Duglas Skinner AA Indications and Patient Condition: ??Indications for Airway Management: ??Anesthesia ??Sedation Level: general anesthesia ??Preoxygenated: yes ?Patient Position: ??Sniffing ??Mask Difficulty Assessment: ??0 - not attempted ??Plan to extubate at end of case: Yes ?? Final Airway Details: ??Final Airway Type: ??Endotracheal airway ??ETT ??Cuffed: Yes ?Cuff Volume (mL): ??6 ??Technique Used for Successful ETT Placement: ??Direct laryngoscopy ??Devices/Methods Used in Placement: ??Intubating stylet and rapid sequence intubations/RSI ??Blade Type: curved blade ??Blade Size: ??3 ??Insertion Site: ??Oral ??ETT Size (mm): ??7.0 ??Measured from: ??Teeth ??ETT to Teeth (cm): ??23 ??Tube secured with: ??Tape ??Placement Verified by: auscultation, end tidal CO2 and chest rise ?Cormack-Lehane Classification: ??Grade I - full view of glottis ??Number of Attempts at Approach: ??1 Additional Procedure Information: atraumatic and dentition unchanged Eva Villatoro MD PROCEDURE/MINOR SURGICAL ORDERABLES Final Result * VERIFICATION BLOOD GROUP (04/23/2024 6:40 AM DOOR TO DOOR SALESPERSON) ABO GROUP A 04/23/2024 7:35 AM DOOR TO DOOR SALESPERSON [facility] RH (D) TYPE Positive 04/23/2024 7:35 AM DOOR TO DOOR SALESPERSON [facility] Blood Venipuncture / Unknown 04/23/2024 6:40 AM DOOR TO DOOR SALESPERSON 04/23/2024 6:48 AM DOOR TO DOOR SALESPERSON Shweta Lynch MD BLOOD BANK ORDERABLES Final Result Performing Organization Address [facility]/ZIP Co de Phone Number [facility] CLIA# [id number] [address] [place] [address] * TYPE AND SCREEN (04/23/2024 5:42 AM DOOR TO DOOR SALESPERSON) ABO GROUP A 04/23/2024 7:18 AM DOOR TO DOOR SALESPERSON [facility] RH (D) TYPE Positive 04/23/2024 7:18 AM DOOR TO DOOR SALESPERSON [facility] ANTIBODY SCREEN Negative 04/23/2024 7:18 AM DOOR TO DOOR SALESPERSON [facility] Blood Venipuncture / Unknown 04/23/2024 5:42 AM DOOR TO DOOR SALESPERSON 04/23/2024 6:21 AM DOOR TO DOOR SALESPERSON Tonya Parrish PA-C BLOOD BANK ORDERABLES Edit ed Result - Final Performing Organization Address City/[facility]/ZIP Co de Phone Number [facility] CLIA# [id number] [address] [place] [address] * URINALYSIS WITH REFLEX MICROSCOPIC (04/23/2024 5:08 AM DOOR TO DOOR SALESPERSON) COLOR UA Yellow Pale to Dark Yellow 04/23/2024 5:57 AM DOOR TO DOOR SALESPERSON [facility] CLARITY UA Clear Clear 04/23/2024 5:57 AM DOOR TO DOOR SALESPERSON [facility] SPECIFIC GRAVITY UA 1.020 1.003 - 1.035 04/23/2024 5:57 AM DOOR TO DOOR SALESPERSON [facility] PH UA 6.5 5.0 - 8.0 04/23/2024 5:57 AM DOOR TO DOOR SALESPERSON [facility] LEUKOCYTE ESTERASE UA Negative Negative 04/23/2024 5:57 AM DOOR TO DOOR SALESPERSON [facility] NITRITE UA Negative Negative 04/23/2024 5:57 AM [facility] PROTEIN UA Negative Negative 04/23/2024 5:57 AM [facility] - . [facility] GLUCOSE UA Negative Negative 04/23/2024 5:57 AM [facility] - . [facility] KETONES UA Negative Negative 04/23/2024 5:57 AM [facility] - . [facility] UROBILINOGEN UA 0.2 <2.0 mg/dL 5:57 AM [facility] - . [facility] BILIRUBIN UA Negative Negative 04/23/2024 5:57 AM [facility] - . [facility] BLOOD UA Negative Negative 04/23/2024 5:57 AM [facility] Urine URINE SPECIMEN OBTAINED BY CLEAN CATCH PROCEDURE / Unknown Collection / Unknown 04/23/2024 5:08 AM DOOR TO DOOR SALESPERSON 04/23/2024 5:15 AM DOOR TO DOOR SALESPERSON Jewell Espinoza MD URINE ORDERABLES Final Result [facility]# [id number] 5 [facility] [place] [address] * CT ABDOMEN PELVIS W CONTRAST (04/23/2024 5:06 AM DOOR TO DOOR SALESPERSON) Anatomical Region Laterality Modality Abdomen Computed Tomogra phy 04/23/2024 5:06 AM DOOR TO DOOR SALESPERSON Impressions 04/23/2024 5:17 AM DOOR TO DOOR SALESPERSON IMPRESSION: 1. Mildly distended and fluid-filled appendix. Findings are suspicious for mild or early appendicitis. DICTATION LOCATION: Location 7 [facility] Narrative 04/23/2024 5:17 AM DOOR TO DOOR SALESPERSON CT ABDOMEN AND PELVIS WITH IV CONTRAST ?? DATE: ??04/23/2024 5:06 AM HISTORY: RLQ abdominal pain TECHNIQUE: CT examination abdomen and pelvis is performed with contiguous axial slices during intravenous infusion of contrast. Sagittal and coronal reconstructions are performed by the technologist. Contrast administered: ??IOPAMIDOL 61 % INTRAVENOUS SOLUTION (MULTI-DOSE BULK PACK) Given:100 mL COMPARISON: ??None The examination was performed with the adjustment of mA according to the patient size and/or the use of Iterative Reconstruction Technique. ?? FINDINGS: Dependent atelectasis is present in the lung bases. Liver and spleen demonstrate normal attenuation without focal defect. Gallbladder is normally distended. Pancreas and adrenal glands are unremarkable. Small left renal cyst is present. The kidneys enhance symmetrically. There is no retroperitoneal mass or significant adenopathy. There is an appendicolith in the body of the appendix. The distal appendix is mildly distended and fluid-filled. There is no significant stranding in the surrounding fat. Findings are suspicious for mild or early appendicitis. Structures related to gastrointestinal tract are otherwise unremarkable. Bladder is within normal limits. No free fluid is seen in the pelvis or abdomen. Procedure Note Brennen Ricardo MD - 04/23/2024 CT ABDOMEN AND PELVIS WITH IV CONTRAST DATE: 04/23/2024 5:06 AM HISTORY: RLQ abdominal pain TECHNIQUE: CT examination abdomen and pelvis is performed with contiguous axial slices during intravenous infusion of contrast. Sagittal and coronal reconstructions are performed by the technologist. Contrast administered: IOPAMIDOL 61 % INTRAVENOUS SOLUTION (MULTI-DOSE BULK PACK) Given:100 mL COMPARISON: None The examination was performed with the adjustment of mA according to the patient size and/or the use of Iterative Reconstruction Technique. FINDINGS: Dependent atelectasis is present in the lung bases. Liver and spleen demonstrate normal attenuation without focal defect. Gallbladder is normally distended. Pancreas and adrenal glands are unremarkable. Small left renal cyst is present. The kidneys enhance symmetrically. There is no retroperitoneal mass or significant adenopathy. There is an appendicolith in the body of the appendix. The distal appendix is mildly distended and fluid-filled. There is no significant stranding in the surrounding fat. Findings are suspicious for mild or early appendicitis. Structures related to gastrointestinal tract are otherwise unremarkable. Bladder is within normal limits. No free fluid is seen in the pelvis or abdomen. IMPRESSION: 1. Mildly distended and fluid-filled appendix. Findings are suspicious for mild or early appendicitis. DICTATION LOCATION: [address] Jewell Espinoza MD CT ORDERABLES Final Result * POC CREATININE (04/23/2024 4:50 AM DOOR TO DOOR SALESPERSON) CREATININE POC 1.00 0.70 - 1.20 mg/dL 04/23/2024 4:50 AM [facility] [[email or web address]] [facility] GFR POC >60 >=60 mL/min/1.7 3 sq meter 04/23/2024 4:50 AM [facility] [[email or web address]] [facility] Comment:eGFR calculated with 2020 CKD-EPI equation. Vegetarian diet, extremely high or low muscle mass, and may affect results. Cystatin C with Glomerular Filtration Rate is a suitable alternative for these patients. Blood, whole 04/23/2024 4:50 AM DOOR TO DOOR SALESPERSON 04/23/2024 4:54 AM DOOR TO DOOR SALESPERSON us Jewell Espinoza MD POINT OF CARE TESTING Final Resu lt [facility] [employer] [facility]# [id number] [address] [place] [address] * (ABNORMAL) CBC WITH DIFFERENTIAL (04/23/2024 4:45 AM DOOR TO DOOR SALESPERSON) WBC 8.7 4.0 - 9.8 K/uL 04/23/2024 5:04 AM DOOR TO DOOR SALESPERSON [facility] RBC 4.92 4.50 - 5.40 M/uL 04/23/2024 5:04 AM [facility] [[email or web address]] [facility] HEMOGLOBIN 14.3 13.6 - 16.5 g/dL 04/23/2024 5:04 AM DOOR TO DOOR SALESPERSON [facility] HEMATOCRIT 42.3 40.0 - 48.0 % 04/23/2024 5:04 AM DOOR TO DOOR SALESPERSON [facility] MCV 86.0 82.0 - 99.0 fL 04/23/2024 5:04 AM [facility] MCH 29.1 27.2 - 32.6 pg 04/23/2024 5:04 AM DOOR TO DOOR SALESPERSON [facility] MCHC 33.8 31.5 - 35.5 g/dL 04/23/2024 5:04 AM DOOR TO DOOR SALESPERSON [facility] RDW 13.2 11.5 - 14.5 % 04/23/2024 5:04 AM [facility] - . [facility] RDW-STDEV 41.2 37.1 - 48.7 fL 04/23/2024 5:04 AM DOOR TO DOOR SALESPERSON [facility] PLATELETS 193 140 - 350 K/uL 04/23/2024 5:04 AM [facility] [[email or web address]] [facility] - . [facility] MPV 11.5 9.3 - 12.4 fL 04/23/2024 5:04 AM DOOR TO DOOR SALESPERSON [facility] NEUTROPHILS 69 % 04/23/2024 5:04 AM [facility] [[email or web address]] [facility] LYMPHOCYTES 23 % 04/23/2024 5:04 AM [facility] MONOCYTES 6 % 04/23/2024 5:04 AM DOOR TO DOOR SALESPERSON [facility] - . [place] EOSINOPHILS 2 % 04/23/2024 5:04 AM DOOR TO DOOR SALESPERSON [facility] - . [facility] BASOPHILS 1 % 04/23/2024 5:04 AM [facility] - . [facility] IMMATURE GRANULOCYTES 1 % 04/23/2024 5:04 AM [facility] - . [facility] Comment:IG (Immature Granulo cyte) count includes Metamyelocytes, Myelocytes, and Promyelocytes NEUTROPHIL ABSOLUTE 6.00 1.90 - 7.00 K/uL 04/23/2024 5:04 AM [facility] - . [facility] LYMPHOCYTE ABSOLUTE 1.96 0.70 - 4.50 K/uL 04/23/2024 5:04 AM DOOR TO DOOR SALESPERSON [facility] - [facility] MONOCYTE ABSOLUTE 0.54 0.10 - 1.30 K/uL 04/23/2024 5:04 AM [facility] - . [facility] EOSINOPHIL ABSOLUTE 0.13 0.00 - 0.70 K/uL 04/23/2024 5:04 AM [facility] BASOPHILS ABSOLUTE 0.06 0.00 - 0.20 K/uL 04/23/2024 5:04 AM [facility] - . [facility] IMMATURE GRANULOCYTES ABSOLUTE 0.04(H) 0.00 - 0.03 K/uL 04/23/2024 5:04 AM [facility] - . [facility] Blood Venipuncture / Unknown 04/23/2024 4:45 AM DOOR TO DOOR SALESPERSON 04/23/2024 4:53 AM DOOR TO DOOR SALESPERSON us Jewell Espinoza MD HEMATOLOGY ORDERABLES Final Resu lt [facility]OR[facility]ORY SERVICES - [facility] CECILIA# [id number] 5 [facility] [place] [place] [id number] * (ABNORMAL) COMPREHENSIVE METABOLIC PANEL (04/23/2024 4:45 AM DOOR TO DOOR SALESPERSON) SODIUM 141 136 - 145 mmol/L 04/23/2024 5:37 AM [facility] [[email or web address]] [facility] - [facility] POTASSIUM 4.0 3.5 - 5.0 mmol/L 04/23/2024 5:37 AM [facility] [[email or web address]] [facility] - [facility] CHLORIDE 105 98 - 107 mmol/L 04/23/2024 5:37 AM [facility] [[email or web address]] [facility] - [facility] CO2 31(H) 22 - 29 mmol/L 04/23/2024 5:37 AM [facility] [[email or web address]] [facility] - [facility] CALCIUM 9.1 8.6 - 10.2 mg/dL 04/23/2024 5:37 AM [facility] [[email or web address]] [facility] - [facility] BUN 17 6 - 20 mg/dL 04/23/2024 5:37 AM [facility] [[email or web address]] [facility] - [facility] CREATININE 1.03 0.67 - 1.17 mg/dL 04/23/2024 5:37 AM [facility] [[email or web address]] [facility] - [facility] GLUCOSE 85 74 - 99 mg/dL 04/23/2024 5:37 AM [facility] [[email or web address]] [facility] - [facility] TOTAL PROTEIN 6.9 6.7 - 8.6 g/dL 04/23/2024 5:37 AM [facility] [[email or web address]] [facility] - [facility] ALBUMIN 4.4 3.5 - 5.2 g/dL 04/23/2024 5:37 AM [facility] [[email or web address]] [facility] - [facility] BILIRUBIN TOTAL 0.3 0.3 - 1.2 mg/dL 04/23/2024 5:37 AM [facility] [[email or web address]] [facility] - [facility] ALKALINE PHOSPHATASE 50 40 - 129 U/L 04/23/2024 5:37 AM DOOR TO DOOR SALESPERSON [facility] - [facility] AST 39 <41 U/L 04/23/2024 5:37 AM [facility] ALT 73(H) <42 U/L 04/23/2024 5:37 AM [facility] GFR >60 >=60 mL/min/1.7 3 sq meter 04/23/2024 5:37 AM [facility] Comment:eGFR calculated with 2020 CKD-EPI equation. Vegetarian diet, extremely high or low muscle mass, and may affect results. Cystatin C with Glomerular Filtration Rate is a suitable alternative for these patients. ANION GAP 5(L) 8 - 16 mmol/L 04/23/2024 5:37 AM [facility] Blood Venipuncture / Unknown 04/23/2024 4:45 AM DOOR TO DOOR SALESPERSON 04/23/2024 4:53 AM DOOR TO DOOR SALESPERSON Narrative [facility] - 04/23/2024 5:37 AM DOOR TO DOOR SALESPERSON Samples containing indocyanine green cause interferences on Total and/or Direct Bilirubin and must not be measured. us Jewell Espinoza MD CHEMISTRY ORDERABLES Final Resul t [facility]# [id number] [address] [facility] [place] [address] * COLONOSCOPY REPORT (01/31/2024 10:22 AM CDT) Narrative Procedure Note Frederick James MD - 01/31/2024 10:22 AM CDT [facility] Endoscopy Patient Name: Anupam Duarte Procedure Date: 01/31/2024 Date of : 1975 Attending MD: Frederick James MD, Procedure: Colonoscopy Indications: Hematochezia. Providers: Frederick James MD Referring MD: Eldon Luis MD Medicines: Propofol per Anesthesia Complications: No immediate complications. Procedure: Informed consent was obtained for the procedure, including moderate sedation after risks were discussed. Based on the pre-procedure assessment, including review of the patient's medical history, medications, allergies, and review of systems, the patient was deemed to be an appropriate candidate for sedation. A timeout was performed. Continuous ECG monitoring, pulse oximetry, blood pressure monitoring, and direct observation were performed. The Colonoscope was introduced through the anus and advanced to the cecum, identified by appendiceal orifice and ileocecal valve. The colonoscopy was performed without difficulty. The patient tolerated the procedure well. The quality of the bowel preparation was good. Estimated Blood Loss: Estimated blood loss: none. Findings: The colonic mucosa was without erythema or ulceration. There were no appreciable diverticulum. The colon prep was good excellent. There were no appreciable polypoid lesions or areas of mucosal change to suggest adenomatous tissue. Retroflexion showed internal hemorrhoids. Impression: Normal colonoscopy the cecum without polyps in the setting of good prep. Internal hemorrhoids. Recommendation: For colon cancer screening recommend follow-up colonoscopy in 10 years Frederick James MD 01/31/2024 10:22:03 AM This report has been signed electronically. Number of Addenda: [address]; [place] [address] Frederick James MD GI PROCEDURE ORDERABLES Michelle l Result from Last 3 Months or Most Recently Relevant to Health Maintenance Insurance [employer] [id number] RX [employer] RX Member Subscriber Plan / Payer (Ef fective 2024-Present) Name:Anupam Duarte Relation to Subscriber:Self Name:Anupam Duarte Subscriber ID:Not on file Payer ID:Not on file Group ID:[id number] Type:RX Commercial Address: [address] Advance Directives For more information, please contact: [phone] * Full Code (Latest Code Status on File) Date Activated Date Inactivated Comments 01/31/2024 9:11 AM 01/31/2024 1:26 PM * Full Code Date Activated Date Inactivated Comments 01/19/2017 6:46 AM 01/19/2017 11:20 AM Care Teams Account Supervisor Relationship Specialty Start Date End Date Eldon Luis MD PCP - General Internal Medicine 08/01/13
--- NOTE | 2024-05-05 08:12 | ED.EYEPROB ---
HPI - Eye Problem General Chief complaint: Eye Problems Stated complaint: Eyes History of Present Illness HPI Narrative: Patient is a 48-year-old male, without significant past medical history, presents to [facility] with bilateral eye pain, onset of symptoms yesterday while seated at his desk working on a computer. Patient does wear corrective lenses, he does not wear contacts. He states while he was working he felt some discomfort in the right eye as well as the right eyelid, described as a foreign body sensation or as if he was poked in the eye. He states last evening he noticed he was having some discomfort in the left eye as well. Today he continues to have some discomfort in his eyes bilaterally, worse with blinking. He denies known foreign body risk, he has not worked with projectiles. He has no vision changes, denies crusting or drainage Related Data Home Medications ?Medication ?Instructions ?Recorded ?Confirmed ?Last Taken ?Type omeprazole 40 mg capsule,delayed 40 mg PO DAILY 04/21/21 07/25/23 Unknown History release vortioxetine 20 mg tablet 20 mg PO DAILY 04/21/21 05/05/24 Unknown History (Trintellix) trazodone 100 mg tablet See Rx Instructions .Route .COMPLEX 07/25/23 07/25/23 Unknown History Allergies Allergy/AdvReac Type Severity Reaction Status Date / Time No Known Allergies Allergy Verified 05/05/24 08:11 Review of Systems Eyes: Eyes: Reports as per [facility] Past Medical History Medical History Asthma as child Depression Anxiety GERD (gastroesophageal reflux disease) Surgical History Surgical History Hx of spinal surgery Family History Family History Mother No pertinent past medical history Social History Social History Substance use: never Living arrangements: with family Gender identity (if verbalized by the patient): Male Sexual Orientation (if Verbalized by the Patient): Straight or Heterosexual Spiritual care concerns: No Exam Const: General: cooperative, healthy appearing, comfortable and no acute distress Nutritional Appearance: average body habitus and well nourished Orientation/consciousness: oriented to person Limitations: no limitations HENMT: Head: normal to inspection Ears: hearing grossly normal bilaterally, external ears normal and TM's normal bilaterally Face/Nose/Sinus: Normal external nose present and Normal nares present Mouth: Yes Normal oral and palatal mucosa present, Yes lip normal and Yes tongue normal Eyes: General: appearance normal, both eyes and all related structures Visual Conde: normal visual conde by confrontation Alignment and Position: alignment normal Periorbital: periorbital findings normal Eyelids: eyelids normal Conjunctivae: conjunctivae normal ( right conjunctiva was mildly injected but otherwise normal) and conjunctival abnormality ( left conjunctival swelling is noted a lateral of the cornea bilaterally) Sclera: sclerae normal Cornea: corneas abnormal ( subtle abrasion on the right at 3:00 o'clock) and fluorescein used Pupils: Equal, round and reactive pupils present EOM: EOMs intact bilaterally Direct Ophthalmoscopy: normal light reflex Neck: Neck: normal visual inspection Thyroid: thyroid normal Resp: Effort & Inspection: normal respiratory effort Auscultation: clear to auscultation bilaterally Percussion: percussion normal Skin: General skin exam: normal color Lesions: no lesions Rashes: no rashes Other: eyelids are unremarkable bilaterally, no periorbital cellulitis or gross swelling Neuro: General: oriented to person Cranial nerves: Yes CN's II-XII intact bilaterally and Yes facial sensation intact/muscles of mastication intact Cognition (Neuro): normal cognition Speech: normal speech Gait exam (Neuro): Normal gait present Motor exam (neuro): 5/5 motor strength present throughout Sensory Exam: normal sensation Course Course Emergency Course: subtle corneal abrasion is noted on the right, there is no foreign body, no hyphema, no significant conjunctivitis. Patient does have mild swelling to the conjunctiva on the left eye lateral of the cornea medially and laterally. Plan to therefore treat with Maxitrol eyedrops, close follow-up with an eye doctor is stressed. If patient has increased eye discomfort or vision changes at any time over the weekend, he is encouraged to contact [facility] vision centers where they will have office hours on the weekend at 1 of their location. Patient is agreeable plan Level of Care: Express Care Visit (42103) Vital Signs Vital signs: Vital Signs Temperature 37.0 C 05/05/24 08:09 Pulse Rate 69 05/05/24 08:09 Respiratory Rate 16 05/05/24 08:09 Blood Pressure 124/78 05/05/24 08:09 Pulse Oximetry 98 05/05/24 08:09 Oxygen Delivery Room Air 05/05/24 08:09 Temperature 37.0 C 05/05/24 08:09 Pulse Rate 69 05/05/24 08:09 Respiratory Rate 16 05/05/24 08:09 Blood Pressure 124/78 05/05/24 08:09 Pulse Oximetry 98 05/05/24 08:09 Oxygen Delivery Room Air 05/05/24 08:09 MDM - Eye Problem MDM Narrative Medical decision making narrative: maxitrol eyedrops Differential Diagnosis Differential diagnosis: Likely corneal abrasion, conjunctivitis and acute iritis Discharge Plan Discharge Clinical Impression: Corneal abrasion Qualifiers: Encounter type: initial encounter Laterality: right Qualified Code(s): S05.01XA - Injury of conjunctiva and corneal abrasion without foreign body, right eye, initial encounter Patient Disposition: Home, Self-Care Condition: Stable Instructions: Antibiotic Form, Corneal Abrasion (DC) Additional Instructions: USE ANTIBIOTIC EYE DROPS PRESCRIBED. FOLLOW-UP CLOSELY WITH YOUR EYE DOCTOR OR CONTACT 1 FROM [facility] [employer] [facility] (CLOSEST LOCATION IS [facility], ) IF SYMPTOMS WORSEN OVER THE WEEKEND Patient Language: Singaporean Prescriptions: New neomycin-polymyxin B-dexameth [Maxitrol] 3.5mg/mL-10,000 unit/mL-0.1 % drops,suspension 1 drp EACH EYE Q4H 5 Days Qty: 5 0RF No Action trazodone 100 mg tablet See Rx Instructions .ROUTE .COMPLEX Rx Instructions: as prescribed omeprazole 40 mg capsule,delayed release(DR/EC) 40 mg PO DAILY Trintellix 20 mg tablet 20 mg PO DAILY Follow-up/Referrals: Janelle,Eldon Cartwright MD [Primary Care Provider] - Stand Alone Forms: Work/School Release IP Time of Disposition: 08:34
== END 2024-05-05 08:39 | disposition home or self-care (01) ==
PROVIDERS: Emergency Provider Nurse Practitioner Family; PCP Internal Medicine
DX: S05.01XA Injury of conjunctiva and corneal abrasion without foreign body, right eye, initial encounter (principal); X58.XXXA Exposure to other specified factors, initial encounter; K21.9 Gastro-esophageal reflux disease without esophagitis; F32.A Depression, unspecified
CPT/HCPCS: 99213; A9270; G0463

== ENCOUNTER 2024-12-05 12:00 | Emergency (ER) | payer OTHER, SELFPAY ==
--- NOTE | 2024-12-05 12:03 | ED_ITS ---
HPI - URI/Sore Throat General Chief Complaint: Upper Respiratory Infection Stated Complaint: cold/flu symptoms Time Seen by Provider: 12/05/24 12:03 Source: patient Mode of arrival: ambulatory Limitations: no limitations History of Present Illness HPI Narrative: Anupam is a 49-year-old male patient presenting to the clinic today with complaints of nasal congestion, cough, head congestion, body aches, and feeling feverish x1 day. He reports symptoms started yesterday morning. Has been taking Sudafed, DayQuil, ibuprofen, and zinc. Denies any chest pain or shortness of breath. No known sick contacts. Related Data Home Medications ?Medication ?Instructions ?Recorded ?Confirmed ?Last Taken ?Type vortioxetine 20 mg tablet 20 mg PO DAILY 04/21/2104/07 Unknown History (Trintellix) buspirone 10 mg tablet mg 12/05/24 Unknown History Allergies Allergy/AdvReac Type Severity Reaction Status Date / Time No Known Allergies Allergy Verified 12/05/24 12:13 Review of Systems Review of Systems: Pertinent positives per HPI. Patient denies any rash, visual changes, dizziness, shortness of breath, chest pain, palpitations, nausea, vomiting, diarrhea, constipation, abdominal pain, or any urinary issues. [facility] Past Medical History Medical History Asthma as child Depression Anxiety GERD (gastroesophageal reflux disease) Surgical History Surgical History Hx of spinal surgery Family History Family History Mother No pertinent past medical history Social History Social History Substance use: never Living arrangements: with family Gender identity (if verbalized by the patient): Male Sexual Orientation (if Verbalized by the Patient): Straight or Heterosexual Spiritual care concerns: No Comments At the time of my signature, I reviewed and agree with the nursing past medical, surgical, social, and family history. There is no relevant family history pertinent to the patient complaint. Exam Narrative: General: Well-developed, obese, in no apparent distress Head: Normocephalic, atraumatic Eyes: Pupils equally round and reactive to light bilaterally, EOM intact, sclera and conjunctive clear, no discharge, lids normal Ears: TMs intact and congested, ear canals clear, no drainage, grossly hearing normal. Nose: Nares patent, clear discharge, moderate inflammation, no sinus tenderness. Mouth: Oral pharynx red without lesions or masses, good dentition, MMM. Postnasal drip Neck: Supple, trachea midline, no enlargement of anterior or posterior cervical nodes, no thyroid masses or goiter palpable. Cardio: Regular rate and rhythm, s1 and s2 normal, no murmur appreciated. Resp: Clear to auscultation bilaterally, no rhonchi, rales, wheezing or rubs Course Course Emergency Course: Portions of this record may have been created with voice recognition software. Level of Care: Express Care Visit Vital Signs Vital signs: Vital Signs Temperature 36.7 C 12/05/24 12:08 Pulse Rate 70 12/05/24 12:08 Respiratory Rate 20 12/05/24 12:08 Blood Pressure 138/83 12/05/24 12:08 Pulse Oximetry 97 12/05/24 12:08 Oxygen Delivery Room Air 12/05/24 12:08 Temperature 36.7 C 12/05/24 12:08 Pulse Rate 70 12/05/24 12:08 Respiratory Rate 20 12/05/24 12:08 Blood Pressure 138/83 12/05/24 12:08 Pulse Oximetry 97 12/05/24 12:08 Oxygen Delivery Room Air 12/05/24 12:08 Vital signs reviewed MDM - URI/Sore Throat MDM Narrative Medical decision making narrative: At the time of visit patient is resting comfortably on the exam table. Patient appears to be nontoxic. Complaints of nasal congestion, cough, head congestion, body aches, and feeling feverish x1 day. He reports symptoms started yesterday morning. Has been taking Sudafed, DayQuil, ibuprofen, and zinc. Denies any chest pain or shortness of breath. No known sick contacts. On exam patient has red oropharynx with postnasal drip, clear nasal drainage and bilateral ear congestion, lung sounds are clear, heart regular rate rhythm. COVID and influenza testing was ordered Labs: COVID and influenza testing was negative in the clinic today. Plan: I suspect patient has URI/viral syndrome. Work note was given. Supportive measures were discussed with the patient and they voiced understanding discharge instructions and agrees to treatment plan. Return precautions reviewed Differential Diagnosis Differential diagnosis: Likely upper respiratory infection, otitis media, sinusitis, viral infection, bronchitis, influenza, pharyngitis and other (COVID ) Discharge Plan Discharge Clinical Impression: Viral infection Upper respiratory infection Qualifiers: URI type: unspecified URI Qualified Code(s): J06.9 - Acute upper respiratory infection, unspecified Patient Disposition: Home Condition: Stable Instructions: Antibiotic Form, Viral Syndrome (ED), Cold Symptoms (ED) Additional Instructions: COVID and influenza testing was negative in the clinic today. Increase fluids and stay well hydrated May take Tylenol or motrin as directed on bottle for pain/fever May use Flonase 1 spray in each nare daily May take OTC antihistamines such as Zyrtec or Claritin daily as directed on bottle May apply Vicks vapor rub to chest to open sinuses Sinus rinses for congestion Cepacol spray, cough drops, throat lozenges, warm tea with honey/lemon, gargle salt water to soothe throat BRAT diet for diarrhea Clear liquids x 24 hours then advance as tolerated for nausea/vomiting Go to the ED if you develop a worsening in your condition- high fever not controlled by Tylenol or Motrin, dehydration, weakness, lethargy, shortness of breath, or chest pain. Follow up with your PCP in 3-5 days if symptoms persist. Patient Language: Latvian Prescriptions: No Action Trintellix 20 mg tablet 20 mg PO DAILY buspirone 10 mg tablet Follow-up/Referrals: Janelle,Eldon Cartwright MD [Primary Care Provider] Stand Alone Forms: Work/School Release IP Time of Disposition: 12:31 Quality NIHSS Nursing Documentation ED NIHSS nursing documentation: reviewed/agree
[2024-12-05 12:08] VITALS: BP 138/83; PULSE 70; RESP 20; TEMP 36.7; O2SAT 97
--- OUTSIDE RECORDS SUMMARY | 2024-12-05 12:09 | XMS_ITS | Clinical Summary ---
Author Organization [facility] Address [address] [place] [address] Phone Care Team Providers Care Needle Punch Operator Name Role Phone Eldon Luis MD Primary Care Provider [phone] Allergies No known active allergies Medications cyclobenzaprine [...] 65 07/02/2022 11:00 PM CDT Temperature 37.1 C (98.7 F) 07/02/2022 10:28 PM CDT Respiratory Rate 18 07/02/2022 10:31 PM CDT Oxygen Saturation 98% 07/02/2022 11:00 PM CDT Inhaled Oxygen Concentration - - Weight 106.6 kg (235 lb) 07/02/2022 10:28 PM CDT Height 167.6 cm (5' 6) 07/02/2022 10:28 PM CDT Body Mass Index 37.93 07/02/2022 10:28 PM CDT Plan of Treatment Not on file Insurance Care Teams Needle Punch Operator Relationship Specialty Start Date End Date Eldon Luis MD [address] [place] [id number] PCP - General 08/26/21
--- OUTSIDE RECORDS SUMMARY | 2024-12-05 12:09 | XMS_ITS | Clinical Summary ---
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 Gender Identity Not on file Sexual Orientation Not on file Last Filed Vital Signs Vital Sign Reading Time Taken Comments Blood Pressure 132/80 07/03/2022 4:30 PM CDT Pulse 73 07/03/2022 4:30 PM CDT Temperature 36.4 C (97.5 F) 07/03/2022 4:32 PM CDT Respiratory Rate 18 07/03/2022 4:30 PM CDT Oxygen Saturation 96% 07/03/2022 4:30 PM CDT Inhaled Oxygen Concentration - - Weight 106.6 kg (235 lb) 07/03/2022 4:30 PM CDT Height 167.6 cm (5' 6) 07/03/2022 4:30 PM CDT Body Mass Index 37.93 07/03/2022 4:30 PM CDT Plan of Treatment Health Maintenance Due Date Last Done Comments Colorectal Cancer Screening Colonoscopy (10 Years) 1975 Annual Physical 1980 Hepatitis C 11/23/1995 Hepatitis B Vaccines (1 of 3 - 19+ 3-dose series) 1996 COVID-19 Vaccine (2023-2 5 season) 2023 DTaP, Tdap and Td Vaccines ( 3 - Td or Tdap) 09/19/2025 09/20/2015, 02/13/2009 Pneumococcal Vaccine: Pediatrics (0 to 5 Years) and At-Risk Patients (6 to 49 Years) Aged Out 01/18/2020 No longer eligible [...] patient's age to complete this topic Insurance [facility] [employer] Care Teams Hot Stamp Operator Relationship Specialty Start Date End Date None, Provider, PCP - General 04/04/21
--- OUTSIDE RECORDS SUMMARY | 2024-12-05 12:10 | XMS_ITS | Clinical Summary ---
Author Organization [address] Address [address] [place] [address] Care Team Providers Care Boiler Welder Name Role Phone Eldon Luis MD Primary [...] 09/14/2011 Herniated lumbar intervertebral disc 12/22/2010 Immunizations Immunization Administration Dates Next Due Influenza, Quadrivalent, Spl it, Preservative Free, Intramuscular 01/18/2020,01/27/2018 Influenza, Trivalent, IM (MDV) 02/13/2009 Pneumococcal Polysaccharide PPV23 01/18/2020 Tdap 09/20/2015,02/13/2009 Surgical History Surgery Date Site/Laterality Comments VASECTOMY Vasectomy OTHER SURGICAL HISTORY 2011 L lumbar radiculopathy: lumbar l4-l5 surgery/ [facility] Medical History Medical History Date Comments Hx [...] on file 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 Gender Identity Not on file Sexual Orientation Not on file Obstetrics History Last Filed Vital Signs Vital Sign Reading Time Taken Comments Blood Pressure 125/90 12/11/2020 9:59 AM CDT Pulse 66 12/11/2020 8:54 AM CDT Temperature 36.6 C (97.8 F) 12/11/2020 8:54 AM CDT Respiratory Rate 15 12/11/2020 8:54 AM CDT Oxygen Saturation 98% 12/11/2020 8:54 AM CDT Inhaled Oxygen Concentration - - Weight 108 kg (238 lb) 12/11/2020 8:54 AM CDT Height 167.6 cm (5' 6) 12/11/2020 8:54 AM CDT Body Mass Index 38.41 12/11/2020 8:54 AM CDT Plan of Treatment Not on file Insurance [facility] [place] [address] [employer] MD Care Teams Boiler Welder Relationship Specialty Start Date End Date Eldon Luis MD PCP - General 12/22/18
--- OUTSIDE RECORDS SUMMARY | 2024-12-05 12:10 | XMS_ITS | Encounter Summary ---
Author Organization [facility] Address [address] [place] [address] Care Team Providers Care Spare Hand Carding Name Role Phone Eldon Luis MD Primary Care Provider [phone] Reason for Visit * Reason Comments Clinical Consult Before Scheduling Encounter Details Date Type Department Care Team (Late st Contact Info) Description 12/05/2024 Nurse Triage [facility] [address] [place] [address] Eldon Luis MD [address] [facility] [address] [place] [address] Social History Tobacco Use Types Packs/Day Years Used Date Smoking Tobacco: Never Passive Smoke Exposure: Never Smokeless Tobacco: Never Alcohol Use Standard Drinks/Week Comments Yes 0.8 (1 standard drink = 0.6 oz p ure alcohol) rarely Feeling Safe Answer Date Recorded Are you in a relationship wi th someone who hurts you emotionally and/or physically? 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 Pt voiced understanding and will go. * Telephone Encounter - Brook Martines - 12/05/2024 10:11 AM CDT Copied from [facility] #[id number]. Topic: Symptomatic Care >> Dec 05, 2024 10:06 AM Brook Davis wrote: Has this patient seen any provider (current or former) at the requested clinic in the past? Yes, Select the appropriate age range and symptom Patient has symptoms and is seeking care. Caller Name: Aunpam Duarte Callback Number: Telephone Information: Call Notes: Patient started with a fever and body aches yesterday and he didn't take a covid test. Age Range/Symptom: Adult 18+ - Cold, Flu, COVID, Sinus, Hay Fever, Allergies, Cough, Fever Does patient have any of the following other urgent symptoms? No urgent symptoms requiring warm call transfer Unable to schedule appointment within patient's desired timeframe. Patient declined all other options for immediate care, preferring to schedule first available. Scheduled appointment for nothing available. If this is not clinically appropriate, please contact patient. Yes, Remind caller to have the patient wear a mask when entering a [facility] (or any healthcare) facility. documented in this encounter Plan of Treatment Not on file documented as of this encounter Visit Diagnoses Not on filedocumented in this encounter Care Teams Spare Hand Carding Relationship Specialty Start Date End Date Eldon Luis MD PCP - General Internal Medicine 08/01/13 documented as of this encounter
--- OUTSIDE RECORDS SUMMARY | 2024-12-05 12:10 | XMS_ITS | Encounter Summary ---
Author Organization [facility] Address 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 report feedback to Dr. Luis Associated Symptoms: pain in left check, radiates into his ear, over to left eye and his check. Unable to sleep and is pacing due to pain Onset: 4 days ago Location: facial Pain Assessment: 1 - 10 with 10 being the most severe pain 8 Treatment so far for current presenting problem: taking meds as directed History (Clinical Problems): dx with [place] History (Oncology/Hematology Diagnosis): Depression Medications: all meds verified in [facility] with callers list Medication reactions: NKDA <<<<<<<< TRIAGE NOTE >>>>>>>> <<<<<<<< TRIAGE/OUTCOME >>>>>>>> Guideline Title: Face Pain or Swelling Recommended Disposition: See Provider within 4 hours Original Inclination: Call Provider/See in 24 Intended Action: See care in [facility] Physician Contacted: No Localized tenderness over one or both temples ? YES documented in this encounter Plan of Treatment Not on file documented as of this encounter Visit Diagnoses Not on filedocumented in this encounter Care Teams Machinist Mechanic Relationship Specialty Start Date End Date Eldon Luis MD PCP - General Internal Medicine 08/01/13 documented as of this encounter
--- OUTSIDE RECORDS SUMMARY | 2024-12-05 12:10 | XMS_ITS | Clinical Summary ---
Author Organization [facility] Address [address] [place] [address] Care Team Providers Care Registered Massage Therapist Name Role Phone Eldon Luis MD Primary Care Provider [phone] Allergies No known active allergies Medications clonazePAM (KlonoPIN) 0.5 mg TabletIndication s:Situational mixed anxiety and depressive disorder Take 1 Tablet (0.5 mg) by mouth 3 times daily as needed for Anxiety. 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 04/23/19 Active Additional Information Patient not taking.Reported on 11/21/2024 busPIRone (BUSPAR) 5 mg tablet Take 5 mg by mouth 2 times daily. Active Active Problems Patient Care Coordination No te Formatting of this note migh t be different from the original. Prev 05/24/24 Problem Noted Date Diagnosed Date Hypercholesterolemia 08/24/2023 [...] Encounters Date Type Department Care Team Description 12/05/2024 Nurse Triage [facility] [address] [place] [address] Eldon Luis MD 11/21/2024 2:30 PM CDT Office Visit [facility] Neurology [address] [place] [address] Eldon Luis MD Wachter, Nathaniel, MD Subjective cognitive impairment (Primary Dx); Anxiety state; Insomnia, unspecified type 11/21/2024 External Device Data STL ABSTRACTION Provider, Abstract 11/07/2024 External Device Data STL ABSTRACTION Provider, Abstract 10/03/2024 External Device Data STL ABSTRACTION Provider, Abstract 09/26/2024 External Device Data STL ABSTRACTION Provider, Abstract 09/20/2024 External Device Data STL ABSTRACTION Provider, Abstract [...] on file Legal 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 Gender Identity Not on file Sexual Orientation Not on file Last Filed Vital Signs Vital Sign Reading Time Taken Comments Blood Pressure 129/80 11/21/2024 2:34 PM CDT Pulse 81 11/21/2024 2:34 PM CDT Temperature 36.1 C (96.9 F) 04/23/2024 11:31 AM 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 Respiratory Rate 16 04/23/2024 11:31 AM 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 Oxygen Saturation 99% 11/21/2024 2:34 PM CDT Inhaled Oxygen Concentration - - Weight 112 kg (247 lb) 11/21/2024 2:34 PM CDT Height 167.6 cm (5' 6) 11/21/2024 2:34 PM CDT Body Mass Index 39.87 11/21/2024 2:34 PM CDT Plan of Treatment Health Maintenance Due Date Last Done Comments Pre-Diabetes and Diabetes Screening 1977 HEPATITIS B VACCINES (1 of 3 - 19+ 3-dose series) 1996 FIT-DNA Q 3 years 2022 FIT/FOBT Q 1 year 2022 Flex Sig/CT Colonography Q 5 years 2022 INFLUENZA VACCINE (#1) 2024 5, 01/18/2020, 01/27/2018, Additional history exists DTAP/TDAP/TD VACCINES (3 - T d or Tdap) 09/19/2025 09/20/2015, 02/13/2009 COLORECTAL SCREENING 01/30/2034 01/31/2024, 01/31/20 Colorectal Cancer Screening 01/30/2034 Preventative Visit- Commercial Completed 0 05/24/2024, 08/24/2023, 05/23/2020, Additional history exists Procedures Procedure Name Priority Date/Time Associated Diagnosis Comments VITAMIN D 25 HYDROXY Routine 10/31/2024 10:40 AM CDT Vitamin D deficiency VITAMIN B12 LEVEL Routine 10/31/2024 10: 40 AM CDT Elevated vitamin B12 level TESTOSTERONE FREE AND TOTAL Routine 10/31/2024 10:40 AM CDT Testosterone deficiency in male PSA Routine 10/31/2024 10:40 AM CDT Screening PSA (prostate specific antigen) LIPID PANEL Routine 10/31/2024 10:40 AM CDT Encounter for routine adult health examination with abnormal findings COMPREHENSIVE METABOLIC PANEL Routine 10/31/2024 10:40 AM CDT Encounter for routine adult health examination with abnormal findings CBC WITH DIFFERENTIAL Routine 10/31/2024 10:40 AM CDT Encounter for routine adult health examination with abnormal findings COLONOSCOPY REPORT 01/31/2024 10 :22 AM CDT from Last 3 Months or Most Recently Relevant to Health Maintenance Results * (ABNORMAL) TESTOSTERONE FREE AND TOTAL (10/31/2024 10:40 AM CDT) [facility] TESTOSTERONE 108(L) 250 - 1100 ng/dL [facility] Comment: Men with clinically significant hypogonadal symptoms and testosterone values repeatedly in the range of the 200-300 ng/dL or less, may benefit from testosterone treatment after adequate risk and benefits counseling. For additional information, please refer to https://[facility].Tuxebo/faq/HTP687 (This link is being provided for informational/educational purposes only.) (Note) This test was developed and its analytical performance characteristics have been determined by [facility]. It has not been cleared or approved by the FDA. This assay has been validated pursuant to the CLIA regulations and is used for clinical purposes. TESTOSTERONE FREE 21.2(L) 35.0 - 155.0 pg/mL [facility] Comment: (Note) This test was developed and its analytical performance characteristics have been determined by [facility]. It has not been cleared or approved by the FDA. This assay has been validated pursuant to the CLIA regulations and is used for clinical purposes. [facility] [address] [place] [address],[address] [place] [address] Marino Quezada MD, PhD FASTING:NO FASTING: NO Test Performed at: [facility] [address] [place] [address], [address] [place] [address] Marino Quezada MD,PhD Blood 10/31/2024 10:4 0 AM CDT 10/31/2024 10:41 AM CDT us Eldon Luis MD CHEMISTRY ORDERABLES Final Re sult [facility] [phone] [facility] [address] [place] [address], [address] [place] [address] * (ABNORMAL) CBC WITH DIFFERENTIAL (10/31/2024 10:40 AM CDT) [facility] WBC 7.3 3.8 - 10.8 Thousand/u L [facility] RBC 5.97(H) 4.20 - 5.80 Million/uL [facility] HEMOGLOBIN 16.1 13.2 - 17.1 g/dL [facility] HEMATOCRIT 52.4(H) 38.5 - 50.0 % [facility] MCV 87.8 80.0 - 100.0 fL [facility] MCH 27.0 27.0 - 33.0 pg [facility] MCHC 30.7(L) 32.0 - 36.0 g/dL [facility] Comment: For adults, a slight decrease in the calculated MCHC value (in the range of 30 to 32 g/dL) is most likely not clinically significant; however, it should be interpreted with caution in correlation with other red cell parameters and the patient's clinical condition. RDW 14.0 11.0 - 15.0 % [facility] PLATELETS 213 140 - 400 Thousand/u L [facility] MPV 12.1 7.5 - 12.5 fL [facility] NEUTROPHIL ABSOLUTE 5,095 1,500 - 7,800 cells/uL [facility] LYMPHOCYTE ABSOLUTE 1,613 850 - 3,900 cells/uL [facility] MONOCYTE ABSOLUTE 438 200 - 950 cells/uL [facility] EOSINOPHIL ABSOLUTE 102 15 - 500 cells/uL [facility] BASOPHILS ABSOLUTE 51 0 - 200 cells/uL [facility] NEUTROPHIL 69.8 % [facility] LYMPHOCYTES 22.1 % [facility] MONOCYTE 6.0 % [facility] EOSINOPHILS 1.4 % [facility] BASOPHILS 0.7 % [facility] Comment: FASTING:NO FASTING: NO Test Performed at: [facility] [address] [place] [address] Daryl Huang MD Blood 10/31/2024 10:4 0 AM CDT 10/31/2024 10:41 AM CDT us Eldon Luis MD HEMATOLOGY ORDERABLES Final R esult [facility] [phone] [facility] [address] * VITAMIN D 25 HYDROXY (10/31/2024 10:40 AM CDT) VITAMIN D, 25 OH, TOTAL 46 30 - 100 ng/mL [facility] Comment: Vitamin D Status 25-OH Vitamin D: Deficiency: <20 ng/mL Insufficiency: 20 - 29 ng/mL Optimal: > or = 30 ng/mL For 25-OH Vitamin D testing on patients on D2-supplementation and patients for whom quantitation of D2 and D3 fractions is required, the [facility]) 25-OH VIT D, (D2,D3), LC/MS/MS is recommended: order code 29893 (patients >2yrs). See Note 1 Note 1 For additional information, please refer to http://education.GestureTek/faq/QDD636 (This link is being provided for informational/ educational purposes only.) FASTING:NO FASTING: NO Test Performed at: [facility] [address] Daryl Huang MD Blood 10/31/2024 10:4 0 AM CDT 10/31/2024 10:41 AM CDT us Eldon Luis MD CHEMISTRY ORDERABLES Final Re sult [facility] [phone] [facility] [address] * PSA (10/31/2024 10:40 AM CDT) PSA 0.78 < OR = 4.00 ng/mL [facility] Comment: The total PSA value from this assay system is standardized against the WHO standard. The test result will be approximately 20% lower when compared to the equimolar-standardized total PSA (Ramonita Loretta). Comparison of serial PSA results should be interpreted with this fact in mind. This test was performed using the Siemens chemiluminescent method. Values obtained from different assay methods cannot be used interchangeably. PSA levels, regardless of value, should not be interpreted as absolute evidence of the presence or absence of disease. FASTING:NO FASTING: NO Test Performed at: [facility] [address] Daryl Huang MD Blood 10/31/2024 10:4 0 AM CDT 10/31/2024 10:41 AM CDT Eldon Luis MD CHEMISTRY ORDERABLES Final Re sult Performing Organization Address [facility]/ZIP Co de Phone Number [facility] [phone] [facility] [address] * (ABNORMAL) VITAMIN B12 LEVEL (10/31/2024 10:40 AM CDT) VITAMIN B12 1255(H) 200 - 1100 pg/mL [facility] Comment: Test Performed at: [facility] [address] Daryl Huang MD Blood 10/31/2024 10:4 0 AM CDT 10/31/2024 10:41 AM CDT Eldon Luis MD CHEMISTRY ORDERABLES Final Re sult Performing Organization Address [facility] Co de Phone Number [facility] [phone] [facility] [address] [place] [address] * (ABNORMAL) LIPID PANEL (10/31/2024 10:40 AM CDT) CHOLESTEROL 175 <200 mg/dL [facility] HDL 50 > OR = 40 mg/dL [facility] TRIGLYCERIDE 181(H) <150 mg/dL [facility] LDL CALCULATED 97 mg/dL (calc) [facility] Comment: Reference range: <100 Desirable range <100 mg/dL for primary prevention; <70 mg/dL for patients with CHD or diabetic patients with > or = 2 CHD risk factors. LDL-C is now calculated using the Wesley calculation, which is a validated novel method providing better accuracy than the Friedewald equation in the estimation of LDL-C. Tan SS et al. KIRA. 2013;310(19): 8336-0482 (http://education.GestureTek/faq/WRF292) CHOL/HDL RATIO 3.5 <5.0 (calc) [facility] NON-HDL CHOLESTEROL 125 <130 mg/dL (calc) [facility] Comment: For patients with diabetes plus 1 major ASCVD risk factor, treating to a non-HDL-C goal of <100 mg/dL (LDL-C of <70 mg/dL) is considered a therapeutic option. Test Performed at: [facility] [address] [place] [address] Daryl Huang MD Blood 10/31/2024 10:4 0 AM CDT 10/31/2024 10:41 AM CDT us Eldon Luis MD CHEMISTRY ORDERABLES Final Re sult [facility] [phone] [facility] [address] [place] [address] * COMPREHENSIVE METABOLIC PANEL (10/31/2024 10:40 AM CDT) GLUCOSE 101 65 - 139 mg/dL [facility] Comment: Non-fasting reference interval BUN 15 7 - 25 mg/dL [facility] CREATININE 1.24 0.60 - 1.29 mg/dL [facility] GFR 73 > OR = 60 mL/min/1. 73m2 [facility] BUN/CREAT RATIO SEE NOTE: 6 - 22 (calc) [facility] Comment: Not Reported: BUN and Creatinine are within reference range. SODIUM 139 135 - 146 mmol/L [facility] POTASSIUM 4.7 3.5 - 5.3 mmol/L [facility] CHLORIDE 104 98 - 110 mmol/L [facility] CO2 27 20 - 32 mmol/L [facility] CALCIUM 9.7 8.6 - 10.3 mg/dL [facility] TOTAL PROTEIN 7.3 6.1 - 8.1 g/dL [facility] ALBUMIN 4.7 3.6 - 5.1 g/dL [facility] GLOBULIN 2.6 1.9 - 3.7 g/dL (calc) [facility] ALBUMIN/GLOBULIN RATIO 1.8 1.0 - 2.5 (calc) [facility] BILIRUBIN TOTAL 0.3 0.2 - 1.2 mg/dL [facility] ALKALINE PHOSPHATASE 45 36 - 130 U/L [facility] AST 23 10 - 40 U/L [facility] ALT 36 9 - 46 U/L [facility] Comment: FASTING:NO FASTING: NO Test Performed at: [facility] [address] [place] [address] Daryl Huang MD Blood 10/31/2024 10:4 0 AM CDT 10/31/2024 10:41 AM CDT Eldon Luis MD CHEMISTRY ORDERABLES Final Re sult [facility] [phone] [facility] [address] [place] [address] * COLONOSCOPY REPORT (01/31/2024 10:22 AM CDT) Narrative Procedure Note Frederick James MD - 01/31/2024 10:22 AM CDT [facility] Endoscopy Patient Name: Anupam Duarte Procedure Date: [...] of Addenda: [address]; [place] [address] Frederick James MD GI PROCEDURE ORDERABLES Michelle l Result from Last 3 Months or Most Recently Relevant to Health Maintenance Insurance [employer] [id number] RX [employer] RX Member Subscriber Plan / Payer (Ef fective 2024-Present) Name:Anupam Duarte Relation to Subscriber:Self Name:Felicia Hervebeba Subscriber ID:Not on file Payer ID:Not on file Group ID:[id number] Type:RX Commercial Address: [place] Advance Directives For more information, please contact: [phone] * Full Code (Latest Code Status on File) Date Activated Date Inactivated Comments 01/31/2024 9:11 AM 01/31/2024 1:26 PM * Full Code Date Activated Date Inactivated Comments 01/19/2017 6:46 AM 01/19/2017 11:20 AM Care Teams Registered Massage Therapist Relationship Specialty Start Date End Date Eldon Luis MD PCP - General Internal Medicine 08/01/13
[2024-12-05 12:33] LABS: EDCOVIDSCREEN Negative (Negative); EDINFLUASCREEN Negative (Negative); EDINFLUBSCREEN Negative (Negative)
== END 2024-12-05 12:40 | disposition home or self-care (01) ==
PROVIDERS: Emergency Provider Nurse Practitioner Family; PCP Internal Medicine
DX: B34.9 Viral infection, unspecified (principal); J06.9 Acute upper respiratory infection, unspecified; K21.9 Gastro-esophageal reflux disease without esophagitis; F41.9 Anxiety disorder, unspecified; F32.A Depression, unspecified
CPT/HCPCS: 87426; 87804; 99212; G0463